=== PATIENT | female | born 1945 | race Caucasian/White ===

== ENCOUNTER 2023-09-03 13:13 | Day surgery (SDC) | payer MEDICARE, SELFPAY ==
--- NOTE | 2023-09-03 13:26 | PCM.HP.BLA ---
History and Physical Date of Admission: 09/03/23 Date of Service: 08/20/23 MR#: [id number] Acct: [id number] Name: PABLITO ALVES Rep #: [id number] : 1945 Provider: Dr. Luda Ayala MD Age/Sex: 77/F Location: [facility] Status: Signed Intake Vital Signs 08/20/2315:05 BP 130/66 H Blood Pressure Location Rt brachial Position Sitting Respiration 17 Pulse 84 Pulse Source Monitor Pulse Oximetry (%) 97 Oxygen Delivery Method room air Intake Visit Reasons: MED CHECK Chief Complaint: med check Is patient in pain?: No Allergies latex Allergy (Severe, Verified 08/20/23 14:37) Rashadhesive Allergy (Verified 08/20/23 14:37) Rashpregabalin [From Lyrica] Adverse Reaction (Verified 08/20/23 14:37) Nausea/Vom/Diarrhea Medications blood sugar diagnostic (True Metrix Glucose Test Strip) #10 ea 07/29/23 [History Confirmed 08/20/23] escitalopram oxalate 20 mg tablet mg PO 07/29/23 [History Confirmed 08/20/23] furosemide 20 mg tablet mg PO 07/29/23 [History Confirmed 08/20/23] glimepiride 2 mg tablet mg PO 07/29/23 [History Confirmed 08/20/23] lancets 33 gauge (TRUEplus Lancets) #100 ea 07/29/23 [History Confirmed 08/20/23] lisinopril 30 mg tablet mg PO 07/29/23 [History Confirmed 08/20/23] morphine 15 mg tablet,extended release mg PO 07/29/23 [History Confirmed 08/20/23] pantoprazole 40 mg tablet,delayed release 40 mg PO DAILY #30 tabs 07/29/23 [Rx Confirmed 08/20/23] PFSH Medical History Abdominal pain Bloating Gallbladder sludge Nausea Surgical History History of open heart surgery Family History Mother Hypertension High cholesterol Diabetes Social History Smoking Status: Never smoker alcohol intake: never substance use type: does not use HPI HPI HPI: 77-year-old female presents for follow-up for nausea. Patient has been taking the Protonix daily currently states she has been having continued nausea also had been taking Pepcid until she ran out. She has nausea throughout the entire day even before she eats. Patient's states she was able to eat an apple with peanut butter with no increase in her pain has bowel movements daily. Patient states she had an EGD about [address] Magdaleno at some point she may have had some erosions in her stomach or esophagus. ROS General General: Yes fatigue Endo Endocrine: Yes diabetes mellitus Cardio Cardiovascular: Yes high blood pressure Psych Psychiatric: Yes anxiety Gastro Gastrointestinal: Yes abdominal pain, Yes nausea or vomiting, Yes constipation, Yes hemorrhoids and Yes gallbladder problem Neuro Neurologic: Yes numbness and Yes tingling Exam Const General: cooperative, healthy appearing, comfortable and no acute distress Resp Effort & Inspection: normal respiratory effort Cardio Rate: regular rate GI Inspection: non-distended Palpation: soft and nontender Assessment and Plan Assessment and Plan (1) Nausea: Status: Acute (2) Bloating: Status: Acute (3) Gallbladder sludge: Status: Acute Plan Will continue to Protonix 40 mg p.o. daily and did offer Carafate however due to one of the side effects being constipation patient did not want to try as she has issues with constipation due to her taking the morphine for pain. Will plan for an EGD and if that does not show anything concerning would plan for cholecystectomy at that time. Patient is agreeable with plan. I have discussed the above with the patient. I have offered the patient esophagogastroduodenoscopy for evaluation. I have explained the risks/benefits of the procedure and described the procedure. I have discussed the risks with the patient, including but not limited to: infection, bleeding, perforation of the GI tract requiring emergency surgery, inability to complete the procedure, injury to any internal organs, complications of anesthesia, etc. - the patient understands and agrees to proceed. I have answered all the patient's questions to the patient's satisfaction and the patient has no further questions. Reviewed the anatomy with the patient and discussed the procedure: laparoscopic cholecystectomy with possible cholangiograms, possible open. Review risks including but not limited to bleeding, infection, hernia, bile leak, retained gallstones requiring another procedure ERCP- Endoscopic Retrograde Cholangiopancreatography, injury to another organ (bile ducts, common bile duct, small bowel, etc.) and conversion to an open procedure. All questions were answered. Luda Ayala M.D. Pager: [phone] [facility] [address] [place] [address] [address] [place] [id number] Office: [phone] Coding Level of Care Code Off vis,est,level 3 Diagnoses Nausea R11.0 Bloating R14.0 Gallbladder sludge K82.8 08/22/23 1153 <Electronically signed by Luda Ayala MD> Date Luda Ayala MD
[2023-09-03 13:54] VITALS: BP 190/74; PULSE 71; RESP 16; TEMP 37.2; O2SAT 99; BMI 27.5
[2023-09-03] MEDS: Lactated Ringers 1,000 ML 15 ML IV (14:02)
[2023-09-03 14:19] LABS: Bedside Glucose 150 mg/dL (74-106)
--- NOTE | 2023-09-03 14:30 | EGD_PTH ---
PATHOLOGY RESULTS PATIENT: PABLITO ALVES LOC: EN U#:[id number] AGE/SX: 78/F ROOM: RE09/03/[address]: Dr. Luda Ayala MD : 1945 BED: DIS: 09/03/2023 SPEC #: [id number] RECD: 09/04/23 07:06 STATUS: MELISSA JOSE LUIS #: [id number] AMKI: 09/03/23 14:[address]: Luda Ayala DEPT: SURGICAL PATHOLOGY RECD BY: Sridevi Coyle ENTERED: 09/04/23 07:07 SP TYPE: EGD BIOPSY Tissues: Gastric mucous membrane Esophagus, NOS Procedures: Special Stain Group II Surgery Specimen Level IV Alcian Blue/PAS (control) HEADER OPERATION: EGD with biopsy PRE-OP DIAGNOSIS: Nausea, bloating, gallbladder sludge TISSUE SUBMITTED: A - Antrum biopsy for H. pylori and path, B - Gastroesophageal junction biopsy MICROSCOPIC DIAGNOSIS A. Antrum, biopsy: Mild gastritis. See microscopic description and comment. B. Gastroesophageal junction, biopsy: A fragment of gastroesophageal mucosa with moderate chronic inflammation. Intestinal metaplasia (goblet cell metaplasia) not identified. See comment. SJ:lizbeth 09/05/2023 COMMENT A. The results of immunohistochemistry for Helicobacter pylori will be reported separately ([id number]). B. Alcian blue/PAS stain with matched control is used in the evaluation of the specimen. MICROSCOPIC DESCRIPTION Slides are reviewed. A. The specimen shows fragments of gastric mucosa with chronic inflammatory cell infiltrates in the lamina propria consisting of lymphocytes and plasma cells, consistent with mild chronic gastritis. GROSS DESCRIPTION A - Received in fixative is one container labeled with the patient's name and designated antrum biopsy. The specimen consists of two irregular fragments of light jones soft tissue that in aggregate measure 0.6 x 0.4 x 0.1 cm. The specimen is totally submitted in one cassette. B - Received in fixative is one container labeled with the patient's name and designated GE junction biopsy. The specimen consists of one irregular fragment of light jones soft tissue that measures 0.2 x 0.2 x 0.1 cm. The specimen is totally submitted in one cassette. / RENETTA:lizbeth 09/04/2023 TC:3 CPT: 93234 x2, 82741
--- NOTE | 2023-09-03 14:30 | IMM_PTH ---
PATHOLOGY RESULTS PATIENT: PABLITO ALVES LOC: EN U#:[id number] AGE/SX: 78/F ROOM: RE09/03/[address]: Dr. Luda Ayala MD : 1945 BED: DIS: 09/03/2023 SPEC #: [id number] RECD: 09/04/23 14:45 STATUS: MELISSA JOSE LUIS #: [id number] MAKI: 09/03/23 14:[address]: Luda Ayala DEPT: IMMUNOHISTOCHEMISTRY RECD BY: Jennifer Esteban ENTERED: 09/04/23 14:45 SP TYPE: IMMUNO Tissues: Stomach, NOS Procedures: H Pylori (initial) PHYSICIAN & INSTITUTION [place] [address] SPECIMEN INFORMATION: Tissue Source: A - Antrum Clinical Info: Nausea, bloating, gallbladder sludge Specimen Number: [id number] CPT code: 33294 METHODOLOGY: Deparaffinized sections of prefer/formalin-fixed tissue or PAP/DQ stained slides are incubated with monoclonal/polyclonal antibodies/oligonucleotide probes. Localization is made via biotin free immunoperoxidase method. Appropriate controls are performed and reacted as expected. Results on target cell population are indicated in the following table: RESULTS: ANTIBODY / CLONE RESULT Block A H Pylori (polyclonal) negative These tests were developed and their performance characteristics determined by [facility]. They may not have been cleared or approved by the U.S. Food and Drug Administration. The FDA has determined that such clearance or approval is not necessary. The above immunohistochemical/dualISH markers are ordered and reviewed by the Pathologist. INTERPRETATION: A. Antrum, biopsy: Negative for Helicobacter pylori organisms. SJ:lizbeth 09/05/2023
[2023-09-03 14:44] VITALS: BP 148/66; BP 190/74; PULSE 73; RESP 16; TEMP 36.4; O2SAT 100
--- NOTE | 2023-09-03 14:44 | OP.EGD_ITS ---
Patient Name: Rachel Stephens Procedure Date: 09/03/2023 2:22 PM Date of : 1945 Age: 78 Procedure: Upper GI endoscopy Indications: Abdominal bloating, Nausea Providers: Luda Ayala MD Medicines: Monitored Anesthesia Care Patient Profile: This is an 78 year old female. Complications: No immediate complications. Procedure: Pre-Anesthesia Assessment: - Prior to the procedure, a History and Physical was performed, and patient medications and allergies were reviewed. The patient's tolerance of previous anesthesia was also reviewed. The risks and benefits of the procedure and the sedation options and risks were discussed with the patient. All questions were answered, and informed consent was obtained. Prior Anticoagulants: The patient has taken no anticoagulant or antiplatelet agents. ASA Grade Assessment: Per anesthesia. After reviewing the risks and benefits, the patient was deemed in satisfactory condition to undergo the procedure. After obtaining informed consent, the endoscope was passed under direct vision. Throughout the procedure, the patient's blood pressure, pulse, and oxygen saturations were monitored continuously. The gastroscope was introduced through the mouth, and advanced to the second part of duodenum. The upper GI endoscopy was accomplished without difficulty. The patient tolerated the procedure well. Scope In: 2:32:43 PM Scope Out: 2:38:10 PM Total Procedure Duration Time 0 hours 5 minutes 27 seconds Findings: The Z-line was irregular and was found 40 cm from the incisors. Biopsies were taken with a cold forceps for histology. Mildly erythematous mucosa without bleeding was found in the gastric antrum. Biopsies were taken with a cold forceps for histology. Biopsies were taken with a cold forceps for Helicobacter pylori cultures. The examined duodenum was normal. The cardia and gastric fundus were normal on retroflexion. The exam was otherwise without abnormality. Impression: - Z-line irregular, 40 cm from the incisors. Biopsied. - Erythematous mucosa in the antrum. Biopsied. - Normal examined duodenum. - The examination was otherwise normal. Recommendation: - Await pathology results. - Discharge patient to home. - Resume previous diet. - Continue present medications. Procedure Code(s): --- Professional --- 88848, Esophagogastroduodenoscopy, flexible, transoral; with biopsy, single or multiple Diagnosis Code(s): --- Professional --- K22.89, Other specified disease of esophagus K31.89, Other diseases of stomach and duodenum R14.0, Abdominal distension (gaseous) R11.0, Nausea CPT copyright 2021 [employer]. All rights reserved. The codes documented in this report are preliminary and upon director of market intelligence review may be revised to meet current compliance requirements. MD Luda Moon MD 09/03/2023 2:43:36 PM This report has been signed electronically. Number of Addenda: 0 Note Initiated On: 09/03/2023 2:22 PM
[2023-09-03 14:50] VITALS: BP 161/72; BP 190/74; PULSE 66; RESP 16; O2SAT 100
[2023-09-03 14:55] VITALS: BP 175/79; BP 190/74; PULSE 67; RESP 16; O2SAT 100
[2023-09-03 14:59] VITALS: BP 183/77; BP 190/74; PULSE 63; RESP 16; TEMP 36.5; O2SAT 100
[2023-09-03 15:21] VITALS: BP 190/74
== END 2023-09-03 15:32 | disposition home or self-care (01) ==
LOC: EN 13:16 → AC 13:17
PROVIDERS: Referring Provider Surgery; Visit Provider Surgery
PROC: 0DJ08ZZ Inspection of Upper Intestinal Tract, Via Natural or Artificial Opening Endoscopic (ICD-10-PCS; CPT 43235; principal; 2023-09-03 14:25)
DX: K29.70 Gastritis, unspecified, without bleeding (principal); E11.9 Type 2 diabetes mellitus without complications; Z79.899 Other long term (current) drug therapy; I10 Essential (primary) hypertension; K20.90 Esophagitis, unspecified without bleeding; Z79.84 Long term (current) use of oral hypoglycemic drugs
CPT/HCPCS: 43239; 82962; 88305; 88313; 88342; J7120; J2405

== ENCOUNTER 2024-02-02 16:27 | Emergency (ER) | payer MEDICARE, SELFPAY ==
[2024-02-02] VITALS (28 sets, daily range): BP systolic 133–204; BP diastolic 57–109; PULSE 58–73; RESP 12–23; TEMP 36.4–36.8; O2SAT 88–100
--- NOTE | 2024-02-02 16:57 | EKG12_ITS ---
Test Reason : SOB Blood Pressure : / mmHG Vent. Rate : 072 BPM Atrial Rate : 072 BPM P-R Int : 150 ms QRS Dur : 100 ms QT Int : 376 ms P-R-T Axes : 095 -54 071 degrees QTc Int : 411 ms Normal sinus rhythm Pulmonary disease pattern Incomplete right bundle branch block Left anterior fascicular block Left ventricular hypertrophy ( R in aVL , Darryl product , Romhilt-Kerns ) Abnormal ECG Confirmed by AMARIS AGRAWAL, ZOEY ([id number]), communications editor KAMILLA FOSTER ([id number]) on 02/03/2024 2:12:28 PM Referred By: BROCK Confirmed By:ZOEY GLEZ MD
--- NOTE | 2024-02-02 16:58 | EX.ED.DYSGE1 ---
HPI History of Present Illness Chief Complaint: Shortness of Breath Informant: patient Onset/Context/Timing Onset: Weeks Context: Gradual Onset Narrative Narrative: Patient presents with several week history of shortness of breath. She has been dealing with constipation for several years after being placed on morphine by pain management. She saw Dr. Ayala in the office 3 weeks ago secondary to abdominal pain and constipation. She was told to take magnesium citrate and be sure to use MiraLAX or Dulcolax when she is constipated. She states she did take magnesium citrate and only had a small bowel movement. She admits that she does not eat right and take care of herself like she should. She saw her PCP today who feels that her increasing shortness of breath is secondary to constipation and pressure on her diaphragm. She does not have cough or congestion. She does not have history of asthma or COPD. [facility] Medical History Loss of hearing Wears glasses Wears partial dentures Post-menopausal History of pressure injury of skin Fractured Diabetes Ambulates with cane Arthritis Bladder disease Easy bruising Back pain Dietary restriction Gastric reflux Non-smoker Neuropathy History of pain when walking History of edema History of stress test History of echocardiogram Cardiology follow-up encounter Hypertension Gallbladder sludge Bloating Nausea Abdominal pain Home Medications ?Medication ?Instructions ?Recorded ?Last Taken ?Type blood sugar diagnostic (True #10 ea 07/29/23 Unknown History Metrix Glucose Test Strip) furosemide 20 mg tablet 20 mg PO PRN PRN edema 07/29/23 Unknown History glimepiride 2 mg tablet 2 mg PO DAILY 07/29/23 Unknown History lancets 33 gauge (TRUEplus Lancets) #100 ea 07/29/23 Unknown History lisinopril 30 mg tablet 30 mg PO DAILY 07/29/23 Unknown History morphine 15 mg tablet,extended 15 mg PO .Q12 07/29/23 Unknown History release pantoprazole 40 mg tablet,delayed 40 mg PO DAILY #30 tabs 09/25/23 Unknown Rx release methylcellulose (laxative) 2 g PO DAILY PRN constipation 01/13/24 Unknown History (Citrucel Sugar Free oral powder) polyethylene glycol 3350 17 4 g PO DAILY PRN constipation 01/13/24 Unknown History gram/dose oral powder (Miralax) escitalopram oxalate 10 mg tablet 10 mg PO DAILY 02/02/24 Unknown History eszopiclone 2 mg tablet 2 mg PO QHS 02/02/24 Unknown History metoprolol tartrate 25 mg tablet 25 mg PO BID 02/02/24 Unknown History omega-3 acid ethyl esters 1 gram 2 cap PO DAILY 02/02/24 Unknown History capsule Allergy/AdvReac Type Severity Reaction Status Date / Time latex Allergy Severe Rash Verified 02/02/24 16:30 adhesive Allergy Rash Verified 02/02/24 16:30 pregabalin (From Lyrica) AdvReac Nausea/Vom/ Verified 02/02/24 16:30 Diarrhea Family History Mother Hypertension High cholesterol Diabetes Surgical History History of esophagogastroduodenoscopy (EGD) History of back surgery Hx of total knee replacement Hx of foot surgery Hx of tubal ligation History of open heart surgery Social History Smoking Status: Never smoker alcohol intake: never substance use type: does not use ROS ROS ED Constitutional Constitutional ED: Denies chills or fever(s) Eyes Eyes: Denies discharge from eye(s) ENT ENT ED: Denies discharge from eye(s), rhinorrhea or sore throat Cardiovascular Cardiovascular: Denies chest pain or palpitations Respiratory/Chest Respiratory/Chest: Reports dyspnea; Denies cough Gastrointestinal Gastrointestinal: Reports abdominal pain and constipation; Denies diarrhea, nausea or vomiting Genitourinary Genitourinary ED: Denies dysuria Musculoskeletal Musculoskeletal: Denies back pain or extremity pain Integumentary Denies Abrasions or rash Neurologic Neurologic: Denies headache(s) or weakness Psychiatric Psychiatric: Denies anxiety or depression Allergic/Immunologic Allergic/Immunologic ED: Denies lip swelling or urticaria EXAM Physical Exam Const Vital Signs: 02/02/24 16:27 02/02/24 16:28 02/02/24 17:22 Temperature 97.5 F L Temperature Source Temporal Pulse Rate 65 70 Respiratory Rate 18 17 Respiratory Effort Short of Breath Respiratory Depth Normal Respiratory Pattern Normal Blood Pressure 142/62 H Blood Pressure Mean 88 Pulse Ox 95 Oxygen Delivery Method Room Air Room Air Oxygen Flow Rate (L/min) 02/02/24 17:27 02/02/24 17:30 02/02/24 17:30 Temperature 98 F Temperature Source Oral Pulse Rate 63 65 65 Respiratory Rate 16 18 23 H Respiratory Effort Respiratory Depth Respiratory Pattern Blood Pressure 152/94 H 154/59 H 154/59 H Blood Pressure Mean 113 90 85 Pulse Ox 92 95 Oxygen Delivery Method Room Air Room Air Oxygen Flow Rate (L/min) 02/02/24 17:45 02/02/24 18:00 02/02/24 18:06 Temperature Temperature Source Pulse Rate 64 60 63 Respiratory Rate 17 18 19 H Respiratory Effort Respiratory Depth Respiratory Pattern Blood Pressure 164/57 H 164/57 H Blood Pressure Mean 88 92 Pulse Ox 95 93 Oxygen Delivery Method Room Air Room Air Oxygen Flow Rate (L/min) 02/02/24 18:15 02/02/24 18:29 02/02/24 18:30 Temperature Temperature Source Pulse Rate 60 59 L Respiratory Rate 16 20 H 16 Respiratory Effort Respiratory Depth Respiratory Pattern Blood Pressure 171/65 H Blood Pressure Mean 92 Pulse Ox 91 88 90 Oxygen Delivery Method Nasal Cannula Nasal Cannula Oxygen Flow Rate (L/min) 2 2 02/02/24 18:45 02/02/24 19:00 02/02/24 19:15 Temperature Temperature Source Pulse Rate 58 L 67 67 Respiratory Rate 14 17 16 Respiratory Effort Respiratory Depth Respiratory Pattern Blood Pressure Blood Pressure Mean Pulse Ox 90 95 100 Oxygen Delivery Method Room Air Oxygen Flow Rate (L/min) 02/02/24 19:30 02/02/24 19:45 02/02/24 19:57 Temperature Temperature Source Pulse Rate 69 70 71 Respiratory Rate 16 15 18 Respiratory Effort Respiratory Depth Respiratory Pattern Blood Pressure Blood Pressure Mean Pulse Ox 96 100 96 Oxygen Delivery Method Oxygen Flow Rate (L/min) 02/02/24 19:58 02/02/24 20:00 Temperature Temperature Source Pulse Rate 73 71 Respiratory Rate 20 H 19 H Respiratory Effort Respiratory Depth Respiratory Pattern Blood Pressure 133/109 H Blood Pressure Mean 117 Pulse Ox 97 100 Oxygen Delivery Method Nasal Cannula Oxygen Flow Rate (L/min) 2 Positive well nourished and well developed General Appearance ED: well developed HEENT Reports moist mucous membranes Eyes EOMs intact bilaterally Chest Wall inspection of chest normal and palpation of chest normal Resp normal respiratory effort and clear to auscultation bilaterally Cardio regular rate and regular rhythm GI GI Narrative: Abdomen soft and slightly distended. Active bowel sounds are noted. No focal tenderness. Extremity normal to inspection Neuro oriented x3 and no sensory deficits noted Motor Exam: strength 5/5 throughout Psych mental status grossly normal Skin no rashes or lesions noted MDM MDM MDM Narrative Medical decision making narrative: Patient placed on monitor technician. IV line initiated. EKG obtained to evaluate for cardiac arrhythmia/ischemia. Labwork obtained to evaluate for leukocytosis, anemia, and electrolyte derangement. Acute abdominal series will be obtained to evaluate bowel gas pattern as well as any acute lung pathology. I did review the most recent surgery note. History & Record Review Discussion w/independent historian: Patient Lab Data Attestation: I reviewed the patient's lab results. Labs: Laboratory Results - last 24 hr 02/02/24 16:55 WBC 11.8 H RBC 3.75 L Hgb 10.7 L Hct 35.4 L MCV 94.4 MCH 28.5 MCHC 30.2 L RDW Std Deviation 42.9 RDW Coeff of Marleen 12.4 Plt Count 248 MPV 9.9 Immature Gran % (Auto) 0.500 Neut % (Auto) 76.6 H Lymph % (Auto) 12.3 L [place] % (Auto) 9.7 Eos % (Auto) 0.0 Baso % (Auto) 0.9 Absolute Neuts (auto) 9.0 H Absolute Lymphs (auto) 1.45 Nucleated RBC % 0 Sodium 138 Potassium 4.2 Chloride 104 Carbon Dioxide 27.0 Anion Gap 7 BUN 21 H Creatinine 1.17 H Estim Creat Clear Calc 33.44 Est GFR (MDRD) Af Amer 57 L Est GFR (MDRD) Non-Af 47 L BUN/Creatinine Ratio 17.9 Glucose 172 H Calcium 9.1 Total Bilirubin 0.90 Direct Bilirubin 0.28 AST 27 ALT 38 Alkaline Phosphatase 142 H Troponin I High Sens 16 Total Protein 7.2 Albumin 3.6 Globulin 3.6 Radiography Diagnostic Testing: Clinical Impression(s) from Imaging Studies Acute Abdomen Series 02/02/24 17:05 IMPRESSION: Chronic obstructive pulmonary disease. Cardiomegaly with sternotomy change and prosthetic aortic valve. Small pleural effusions without florid interstitial edema. Large colonic stool and gas burden as can be seen with constipation. No specific evidence of bowel obstruction. Electronically Signed: Nick Haney MD at 17:35 EDT , Chest CTA 02/02/24 20:06 IMPRESSION: No pulmonary embolism. 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 Mild peribronchial thickening which can be seen with edema or bronchitis/bronchiolitis. 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 Mild reactive mediastinal and hilar adenopathy. Electronically Signed: Nick Haney MD at 20:41 EDT , Treatment and Re-Evaluation :: CBC was white count of 11.8 with 76% neutrophils. Hemoglobin is 10.7. Chemistry studies reveal a BUN of 21 and a creatinine 1.17. Glucose is 172. LFTs significant only for an alk phos of 142. Troponin is normal at 16. Acute abdominal series is obtained. Chronic lung changes are noted with no infiltrate. Large stool burden noted with no evidence of bowel obstruction per my interpretation. Radiology interpretation reviewed and agrees. Patient was ordered a soapsuds enema. I was advised by nursing staff that the patient did drop her oxygen saturations into the mid to upper 80s and required 2 L nasal cannula. At that time I did choose to obtain a CTA of her chest. There is no evidence of pulmonary embolism. 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 There are small layering effusions noted. Nursing staff notes patient had large results with her enema. I did discuss her current need for oxygen, however patient is very adamant that she wants to go home. She states that she does have a pulse ox meter that she will monitor her oxygen levels. I will have her sign out AGAINST MEDICAL ADVICE. She states that when she had similar ankle swelling in the past her principal quality engineer told her to take 20 mg of Lasix daily instead of the 10 mg 3 times a week that she currently takes it. She will increase her Lasix again at home to help with fluid resolution. She does have magnesium citrate at home that she will take tomorrow and then use Dulcolax laxatives to help with her constipation. She will also speak with her pain management doctor regarding other treatment options. Discharge Plan Triage Chief Complaint: Shortness of Breath ED Provider: Prema Palacios Dx/Rx/DC Orders Clinical Impression: CHF (congestive heart failure), Constipation Instructions: ED Heart Failure, Congestive (CHF), ED Constipation (Adult) Prescriptions: No Action morphine 15 mg tablet extended release 15 mg PO .Q12 glimepiride 2 mg tablet 2 mg PO DAILY furosemide 20 mg tablet 20 mg PO PRN PRN (Reason: edema) Patient Comments: TAKE 1/2 TABLET BY MOUTH 3 TIMES A DAY NEEDED. lisinopril 30 mg tablet 30 mg PO DAILY Patient Comments: TAKE 1 TABLET BY MOUTH ONCE DAILY. (DME) True Metrix Glucose Test Strip Strip See Rx Instructions .ROUTE .MEDSUPPLY Qty: 10 Patient Comments: USE DIRECTED ONCE DAILY Rx Instructions: As directed (DME) lancets [TRUEplus Lancets] 33 gauge misc See Rx Instructions .ROUTE .MEDSUPPLY Qty: 100 Patient Comments: USE DIRECTED ONCE DAILY Rx Instructions: As directed polyethylene glycol 3350 [Miralax] 17 gram/dose powder 4 g PO DAILY PRN (Reason: constipation) Citrucel Sugar Free Powder 2 g PO DAILY PRN (Reason: constipation) escitalopram oxalate 10 mg tablet 10 mg PO DAILY metoprolol tartrate 25 mg tablet 25 mg PO BID omega-3 acid ethyl esters 1 gram capsule 2 cap PO DAILY eszopiclone 2 mg tablet 2 mg PO QHS pantoprazole 40 mg tablet,delayed release (DR/EC) 40 mg PO DAILY Qty: 30 5RF Primary Care Provider: DENILSON HERNANDEZ Referrals: Jasper Rose MD [Med Staff - Active Staff] - 1-2 Weeks NOT,DEFINED [Non-Staff] - Print Language: Sinhala Disposition Disposition: Home, Self Care
--- NOTE | 2024-02-02 17:05 | RAD_ITS ---
INDICATION: sob, constipation EXAMINATION/TECHNIQUE: X-RAY - XR Abdomen Series W/ Chest 1 View COMPARISON: FINDINGS: LINES/DEVICES: None. --Chest: LUNGS: Lungs symmetrically hyperexpanded. Small bowel pleural effusions. No consolidation. No pneumothorax. MEDIASTINUM AND CARDIOVASCULAR STRUCTURES: Cardiac silhouette not enlarged. Multiple mediastinal surgical clips. Aortic prosthetic valve noted. Epigastric percutaneous pacing wires present. BONES AND SOFT TISSUES: Sternotomy wires are midline and intact. No acute findings. --Abdomen: BOWEL GAS PATTERN: Large colonic stool and gas burden. Scattered small bowel gas. Stomach moderately filled with gas. FREE AIR: None visualized. ORGANOMEGALY: Not seen. CALCIFICATIONS: No concerning calcifications. BONES AND SOFT TISSUES: No acute findings. RAD/Acute Abdomen Inc Chest IMPRESSION: Chronic obstructive pulmonary disease. Cardiomegaly with sternotomy change and prosthetic aortic valve. Small pleural effusions without florid interstitial edema. Large colonic stool and gas burden as can be seen with constipation. No specific evidence of bowel obstruction. Electronically Signed: Nick Haney MD at 17:35 EDT Reading Location ID and State: [facility] / [place] Tel , Service support ,
[2024-02-02 17:08] LABS: Absolute Lymphocyte Count 1.45 X10^3/uL (0.83-4.51); Basophil# 0.11 X10^3/uL; Basophil% 0.9 % (0-1); Hematocrit 35.4 % (37-47); Hemoglobin 10.7 g/dL (12.0-15.0); Lymphocyte # 1.45 X10^3/ul (0.83-4.51); Lymphocyte % 12.3 % (19-41); Mean Corp Hgb Conc 30.2 g/dL (32-36); Mean Corpuscular Hgb 28.5 pg (27.0-32.0); Mean Corpuscular Volume 94.4 fL (81-99); Mean Platelet Vol. 9.9 fl (6.2-12.0); Monocyte# 1.14 X10^3/uL; Monocyte% 9.7 % (0-10); NRBC Flagged by Analyzer 0 % (0-5); Neutrophil # 9.03 X10^3/uL (2.7-7.7); Neutrophil % 76.6 % (47-70); Platelet Count 248 K/mm3 (150-450); RBC Distribution Width CV 12.4 % (11.6-14.6); RBC Distribution Width SD 42.9 fl (35.1-43.9); Red Blood Count 3.75 M/mm3 (4.2-5.4); White Blood Count 11.8 K/mm3 (4.4-11.0)
[2024-02-02 17:34] LABS: AST(SGOT) 27 U/L (15-37); Alanine Aminotransfer ALT/SGPT 38 U/L (13-56); Albumin, Serum 3.6 g/dL (3.2-5.0); Alkaline Phosphatase 142 U/L (45-117); Anion Gap 7 (5-15); BUN 21 mg/dL (7-18); BUN/Creat Ratio 17.9 RATIO (10-20); Bilirubin, Direct 0.28 mg/dL (0.00-0.30); Calcium,Total 9.1 mg/dL (8.5-10.1); Chloride 104 mmol/L (98-107); Creatinine, Serum 1.17 mg/dL (0.55-1.02); EST Glomerular Filtration Rate 47 mL/min (>60); Est Glom Filt Rate - Afr Amer 57 mL/min (>60); Estimated Creatinine Clearance 33.44 ml/min; Globulin 3.6 g/dL (2.2-4.2); Glucose 172 mg/dL (74-106); Potassium 4.2 mmol/L (3.5-5.1); Protein, Total 7.2 g/dL (6.4-8.2); Sodium Level 138 mmol/L (136-145); Troponin-I HS 16 pg/mL (3.0-54.0)
--- NOTE | 2024-02-02 20:06 | CT_ITS ---
STUDY: CTA CHEST REASON FOR EXAM: Female, 78 years old. hypoxia RADIATION DOSAGE (If Supplied By Facility): CTDIvol = ( 11.59 ) mGy, DLP = ( 377.68 ) mGycm TECHNIQUE: The examination was performed with the intravenous administration of IV 75mL Isovue-370. Post-processing of the angiographic images was performed, with multiplanar reformation and 3D reconstruction. Individualized dose optimization techniques were used for this CT. COMPARISON: February 02, 2024 chest radiograph. FINDINGS: Mildly heterogeneous thyroid, no specific imaging follow-up required. Normal enhancement of the bilateral pulmonary arteries. There is no demonstrated pulmonary embolism. No main pulmonary arterial enlargement. Prosthetic aortic valve noted. Mild aortic atherosclerosis. 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 No cardiomegaly or pericardial effusion. Mild scattered calcified coronary atherosclerosis. Prior sternotomy with percutaneous pacing wires Precarinal lymph node 1.8 cm in short axis. Subcarinal lymph node 1.7 cm short axis. Subcentimeter bilateral hilar lymph nodes are present. Unremarkable esophagus. Mild bilateral peribronchial thickening. Mild bilateral intralobular septal thickening. Small layering pleural effusions with mild compressive atelectasis. No pneumothorax. 5 mm posterior right upper lobe nodule axial image 169. Normal osseous structures. Normal visualized upper abdomen. CT/CTA Chest W/WO Contrast IMPRESSION: No pulmonary embolism. 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 Mild peribronchial thickening which can be seen with edema or bronchitis/bronchiolitis. 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 Mild reactive mediastinal and hilar adenopathy. Electronically Signed: Nick Haney MD at 20:41 EDT ,
== END 2024-02-02 21:41 | disposition home or self-care (01) ==
PROVIDERS: Emergency Provider Emergency Medicine; Visit Provider Emergency Medicine
DX: I11.0 Hypertensive heart disease with heart failure (principal); I50.9 Heart failure, unspecified; E11.9 Type 2 diabetes mellitus without complications; K59.00 Constipation, unspecified; Z79.899 Other long term (current) drug therapy; Z95.2 Presence of prosthetic heart valve; Z95.1 Presence of aortocoronary bypass graft
CPT/HCPCS: 71275; 74022; 80048; 80076; 84484; 85025; 93005; 99285; Q9967; A4216

== ENCOUNTER 2024-02-06 15:08 | Inpatient (IN) | payer MEDICARE, SELFPAY ==
[2024-02-06] VITALS (13 sets, daily range): BP systolic 160–210; BP diastolic 59–84; PULSE 14–86; RESP 14–83; TEMP 36.1–36.8; O2SAT 93–100; BMI 29.6; BMI 28.8
--- NOTE | 2024-02-06 15:48 | EKG12_ITS ---
Test Reason : SOB Blood Pressure : / mmHG Vent. Rate : 062 BPM Atrial Rate : 062 BPM P-R Int : 168 ms QRS Dur : 106 ms QT Int : 456 ms P-R-T Axes : 067 -57 035 degrees QTc Int : 462 ms Normal sinus rhythm Left anterior fascicular block Left ventricular hypertrophy ( R in aVL , [place] product , Romh[employer]-Kerns ) Abnormal ECG Confirmed by AMARIS AGRAWAL, ZOEY ([id number]), market editor KAMILLA FOSTER ([id number]) on 02/09/2024 8:50:07 AM Referred By: Confirmed By:ZOEY GLEZ MD
--- NOTE | 2024-02-06 15:51 | EDS_ITS ---
HPI History of Present Illness Chief Complaint: Shortness of Breath Informant: patient Narrative Narrative: Worsening and persistent dyspnea since being seen 4 days ago in the emergency department. She has history of CHF. She denies cough. She states she swallows in the stomach and the legs. She reports orthopnea. She denies cough or fevers. Denies chest pain. She was initially seen by her PCP on Friday and was told to go to the ED. She had a workup. She is typically takes Lasix 10 mg 3 times a week. Since being discharged she has been on 20 mg Lasix daily. States swelling not improving symptoms not improved. She has been checking her amatory pulse ox at home states fluctuates from 84% to 95%. She returns for reevaluation. After evaluation initiation of workup, I reviewed her records from the ED 4 days ago. She had a CTA of the chest neck for PE she had later bilateral pleural effusion. Her pulse ox did drop on the emergency department however she declined hospitalization and signed out AGAINST MEDICAL ADVICE. [facility] Medical History Loss of hearing Wears glasses Wears partial dentures Post-menopausal History of pressure injury of skin Fractured Diabetes Ambulates with cane Arthritis Bladder disease Easy bruising Back pain Dietary restriction Gastric reflux Non-smoker Neuropathy History of pain when walking History of edema History of stress test History of echocardiogram Cardiology follow-up encounter Hypertension Gallbladder sludge Bloating Nausea Abdominal pain Home Medications ?Medication ?Instructions ?Recorded ?Last Taken ?Type blood sugar diagnostic (True #10 ea 07/29/23 Unknown History Metrix Glucose Test Strip) furosemide 20 mg tablet 20 mg PO DAILY PRN edema 07/29/23 02/06/24 History glimepiride 2 mg tablet 2 mg PO DAILY 07/29/23 02/06/24 History lancets 33 gauge (TRUEplus Lancets) #100 ea 07/29/23 Unknown History lisinopril 30 mg tablet 30 mg PO DAILY 07/29/23 02/06/24 History morphine 15 mg tablet,extended 15 mg PO Q12H 07/29/23 02/05/24 History release methylcellulose (laxative) 2 g PO DAILY PRN constipation 01/13/24 Unknown History (Citrucel Sugar Free oral powder) polyethylene glycol 3350 17 4 g PO DAILY PRN constipation 01/13/24 Unknown History gram/dose oral powder (Miralax) escitalopram oxalate 10 mg tablet 10 mg PO QPM 02/02/24 02/05/24 History eszopiclone 2 mg tablet 2 mg PO QHS PRN sleep 02/02/24 Unknown History metoprolol tartrate 25 mg tablet 25 mg PO BID 02/02/24 02/05/24 History omega-3 acid ethyl esters 1 gram 2 cap PO DAILY 02/02/24 02/06/24 History capsule docusate sodium 100 mg capsule 100 mg PO DAILY PRN constipation 02/06/24 Unknown History Allergy/AdvReac Type Severity Reaction Status Date / Time latex Allergy Severe Rash Verified 02/06/24 15:12 adhesive Allergy Rash Verified 02/06/24 15:12 pregabalin (From Lyrica) AdvReac Nausea/Vom/ Verified 02/06/24 15:12 Diarrhea Family History Mother Hypertension High cholesterol Diabetes Surgical History History of esophagogastroduodenoscopy (EGD) History of back surgery Hx of total knee replacement Hx of foot surgery Hx of tubal ligation History of open heart surgery Social History Smoking Status: Never smoker alcohol intake: never substance use type: does not use ROS ROS ED Constitutional Constitutional ED: Denies chills, fever(s) or sweats Eyes Eyes: Denies change in vision ENT ENT ED: Denies dysphagia or sore throat Cardiovascular Cardiovascular: Reports leg edema and orthopnea; Denies chest pain, palpitations or racing heartbeat Respiratory/Chest Respiratory/Chest: Reports dyspnea and orthopnea; Denies cough or dyspnea on exertion Gastrointestinal Gastrointestinal: Denies abdominal pain, diarrhea, nausea or vomiting Genitourinary Genitourinary ED: Denies dysuria, hematuria or urinary frequency Musculoskeletal Musculoskeletal: Denies back pain, extremity pain or neck pain Integumentary Denies rash or wounds Neurologic Neurologic: Denies headache(s), paresthesias or weakness EXAM Physical Exam Const Vital Signs: 02/06/24 15:08 02/06/24 15:08 02/06/24 17:12 Temperature 97.3 F L Temperature Source Temporal Pulse Rate 73 14 L Respiratory Rate 14 83 H Respiratory Effort Short of Breath Respiratory Depth Shallow Respiratory Pattern Tachypnea Blood Pressure 210/81 H 202/71 H Blood Pressure Mean 124 114 Pulse Ox 98 99 Oxygen Delivery Method Room Air Room Air Oxygen Flow Rate (L/min) 02/06/24 17:14 02/06/24 17:17 02/06/24 17:34 Temperature Temperature Source Pulse Rate 60 Respiratory Rate 19 H Respiratory Effort Respiratory Depth Respiratory Pattern Blood Pressure 198/84 H 160/77 H Blood Pressure Mean 122 104 Pulse Ox 100 98 Oxygen Delivery Method Nasal Cannula Room Air Oxygen Flow Rate (L/min) 2 Positive well nourished and well developed General Appearance ED: well developed and NAD HEENT Reports moist mucous membranes normocephalic and atraumatic Eyes EOMs intact bilaterally and conjunctivae normal General Eye ED: Yes normal appearance of both eyes Neck no lymphadenopathy and supple General: Negative for tenderness Chest Wall Chest: Negative for tenderness Resp normal respiratory effort and normal air movement Effort and Inspection: symmetric chest movement; Negative for respiratory distre ss Cardio regular rate, regular rhythm and no murmurs Peripheral Pulses: pulses 2+ throughout GI non-tender GI Narrative: abdominal distention, nontender Palpation: Negative for guarding or rebound tenderness present Back/Spine no CVA tenderness and no thoracic nor lumbar tenderness Extremity normal to inspection Extremity Narrative: 1+ lower extremity edema bilaterally pitting. General Extremety ED: Yes edema; Negative for tenderness General Extremity: edema Neuro oriented x3 and no sensory deficits noted Sensorium / Orientation: awake and alert Skin no rashes or lesions noted and no wounds MDM MDM MDM Narrative Medical decision making narrative: Interventions / MDM: Differential diagnosis: CHF exacerbation, anasarca, hypoxia Diagnosis considered but do not suspect: Pulm embolism however CTA chest -4 days ago. My EKG interpretation: N/A Imaging independently reviewed and interpreted by myself: 2 view chest x-ray: Vascular congestion mild pleural effusion also read by radiology. External documents reviewed: N/A Test considered but not ordered:N/A ED course: Blood pressure 210 systolic on arrival, however during my evaluation room systolic 164. She is on lisinopril 30 mg daily. Current pulse ox at rest 98%. Will check x-ray and recheck labs. Lab stable creatinine slightly elevated up to 1.26 from 1.1. BNP 288 troponin negative. Chest x-ray with mild pleural effusion. Patient was ambulated per nursing dropped down to 82%. Improving with rest placed on 2 L. She started on 40 mg IV Lasix. I discussed with hospitalist Dr. Davila for admission to PCU. Re-evaluation: stable Disposition discussed with patient/family/significant other: Patient Case discussed with consulting clinician: Hospitalist This note was generated with [employer] dictation software. It may contain incorrect words, spelling, and punctuation that were not noted in checking the note before signing. Lab Data Attestation: I reviewed the patient's lab results. Labs: Laboratory Results - last 24 hr 02/06/24 16:00 WBC 8.9 RBC 3.67 L Hgb 10.5 L Hct 34.1 L MCV 92.9 MCH 28.6 MCHC 30.8 L RDW Std Deviation 42.5 RDW Coeff of Marleen 12.5 Plt Count 234 MPV 10.0 Immature Gran % (Auto) 0.400 Neut % (Auto) 74.5 H Lymph % (Auto) 13.0 L [place] % (Auto) 10.9 H Eos % (Auto) 0.0 Baso % (Auto) 1.2 H Absolute Neuts (auto) 6.6 Absolute Lymphs (auto) 1.16 Nucleated RBC % 0 Sodium 137 Potassium 3.7 Chloride 100 Carbon Dioxide 29.0 Anion Gap 8 BUN 25 H Creatinine 1.26 H Estim Creat Clear Calc 30.82 Est GFR (MDRD) Af Amer 53 L Est GFR (MDRD) Non-Af 43 L BUN/Creatinine Ratio 19.8 Glucose 165 H Calcium 9.1 Troponin I High Sens 13 B-Natriuretic Peptide 288.3 H Radiography Diagnostic Testing: Clinical Impression(s) from Imaging Studies Chest X-Ray 02/06/24 16:10 IMPRESSION: Cardiomegaly with minimal central pulmonary venous congestion and trace bilateral pleural effusions. Electronically Signed: Delano Mann MD at 17:31 EDT , Discharge Plan Dx/Rx/DC Orders Clinical Impression: CHF (congestive heart failure), Hypoxia, Anasarca, Failure of outpatient treatment Disposition Disposition: Acute Care Hospital [facility] Discharge Date/Time: 02/06/24 18:11
--- NOTE | 2024-02-06 16:10 | RAD_ITS ---
INDICATION: sob EXAMINATION/TECHNIQUE: X-RAY - XR Chest 2 Views COMPARISON: 02/02/2024. FINDINGS: Minimal central pulmonary venous congestion. Sternal cerclage wires and vascular clips are present from a prior sternotomy and coronary artery bypass graft procedure (CABG). The heart is enlarged. Tortuous and calcified thoracic aorta. Trace bilateral pleural effusions. No pneumothorax. Degenerative changes of the thoracic spine. RAD/Chest PA and Lateral IMPRESSION: Cardiomegaly with minimal central pulmonary venous congestion and trace bilateral pleural effusions. Electronically Signed: Delano Mann MD at 17:31 EDT ,
[2024-02-06 16:21] LABS: Absolute Lymphocyte Count 1.16 X10^3/uL (0.83-4.51); Absolute Neutrophil Count 6.6 X10^3/uL (2.0-7.7); Basophil# 0.11 X10^3/uL; Basophil% 1.2 % (0-1); Hematocrit 34.1 % (37-47); Hemoglobin 10.5 g/dL (12.0-15.0); Lymphocyte # 1.16 X10^3/ul (0.83-4.51); Mean Corp Hgb Conc 30.8 g/dL (32-36); Mean Corpuscular Hgb 28.6 pg (27.0-32.0); Mean Corpuscular Volume 92.9 fL (81-99); Monocyte# 0.97 X10^3/uL; Monocyte% 10.9 % (0-10); NRBC Flagged by Analyzer 0 % (0-5); Neutrophil # 6.62 X10^3/uL (2.7-7.7); Neutrophil % 74.5 % (47-70); Platelet Count 234 K/mm3 (150-450); RBC Distribution Width CV 12.5 % (11.6-14.6); RBC Distribution Width SD 42.5 fl (35.1-43.9); Red Blood Count 3.67 M/mm3 (4.2-5.4); White Blood Count 8.9 K/mm3 (4.4-11.0)
[2024-02-06 16:45] LABS: Anion Gap 8 (5-15); BUN 25 mg/dL (7-18); BUN/Creat Ratio 19.8 RATIO (10-20); Calcium,Total 9.1 mg/dL (8.5-10.1); Chloride 100 mmol/L (98-107); Creatinine, Serum 1.26 mg/dL (0.55-1.02); EST Glomerular Filtration Rate 43 mL/min (>60); Est Glom Filt Rate - Afr Amer 53 mL/min (>60); Estimated Creatinine Clearance 30.82 ml/min; Glucose 165 mg/dL (74-106); Potassium 3.7 mmol/L (3.5-5.1); Sodium Level 137 mmol/L (136-145); Troponin-I HS 13 pg/mL (3.0-54.0)
[2024-02-06 17:18] LABS: BNP,B-Type NATRIURETIC PEPTIDE 288.3 pg/mL (0-100)
[2024-02-06] MEDS: Furosemide 40 MG/4 ML Vial IV (17:40)
--- NOTE | 2024-02-06 18:05 | HP.PCM.HOS_ITS ---
HPI - General General Date of Admission: 02/06/24 Date of Service: 02/06/24 Chief Complaint: shortness of breath HPI Narrative PABLITO ALVES, is a 78 F with a PMH as outlined who presents via the ED on 02/06/2024 with a complaint of shortness of breath which have been going on for at least 5 days. She said her shortness of breath had gradually worsened. She denied any cough or chest pain, palpitations or dizziness, orthopnea or PND. Shortness of breath worsened with exertion. She has not has had shortness of breath before. She states she also notices some swelling of her lower extremities, especially around her ankles. Review of systems otherwise negative. She was seen in the ED last Friday and plan was for her to be admitted as chest imaging done showed evidence of bilateral pleural effusion concerning for heart failure. Patient however says she did not feel the shortness of breath was that bad at that time and so she opted to go home and signed out AMA. She came back because her symptoms were worsening. Vitals in the ED showed blood pressure of 160/77, pulse rate of 60, respirate rate of 19 and oxygen saturation of 98% on 2L of oxygen. CBC showed WBC of 8.9 with hemoglobin of 10.5 and platelets of 234. Chemistry shows sodium of 137 with potassium of 3.7 and bicarb of 29. Creatinine is 1.26. Initial troponin was negative and BNP was 288.3. Chest x-ray showed cardiomegaly with minimal central venous pulmonary congestion and trace bilateral pleural effusions. She has been admitted to manage for hypoxia due to acute heart failure of unknown EF. [facility] Medical History Loss of hearing Wears glasses Wears partial dentures Post-menopausal History of pressure injury of skin Fractured Diabetes Ambulates with cane Arthritis Bladder disease Easy bruising Back pain Dietary restriction Gastric reflux Non-smoker Neuropathy History of pain when walking History of edema History of stress test History of echocardiogram Cardiology follow-up encounter Hypertension Gallbladder sludge Bloating Nausea Abdominal pain Home Medications ?Medication ?Instructions ?Recorded ?Last Taken ?Type blood sugar diagnostic (True #10 ea 07/29/23 Unknown History Metrix Glucose Test Strip) furosemide 20 mg tablet 20 mg PO DAILY PRN edema 07/29/23 02/06/24 History glimepiride 2 mg tablet 2 mg PO DAILY 07/29/23 02/06/24 History lancets 33 gauge (TRUEplus Lancets) #100 ea 07/29/23 Unknown History lisinopril 30 mg tablet 30 mg PO DAILY 07/29/23 02/06/24 History morphine 15 mg tablet,extended 15 mg PO Q12H 07/29/23 02/05/24 History release methylcellulose (laxative) 2 g PO DAILY PRN constipation 01/13/24 Unknown History (Citrucel Sugar Free oral powder) polyethylene glycol 3350 17 4 g PO DAILY PRN constipation 01/13/24 Unknown History gram/dose oral powder (Miralax) escitalopram oxalate 10 mg tablet 10 mg PO QPM 02/02/24 02/05/24 History eszopiclone 2 mg tablet 2 mg PO QHS PRN sleep 02/02/24 Unknown History metoprolol tartrate 25 mg tablet 25 mg PO BID 02/02/24 02/05/24 History omega-3 acid ethyl esters 1 gram 2 cap PO DAILY 02/02/24 02/06/24 History capsule docusate sodium 100 mg capsule 100 mg PO DAILY PRN constipation 02/06/24 Unknown History Allergy/AdvReac Type Severity Reaction Status Date / Time latex Allergy Severe Rash Verified 02/06/24 15:12 adhesive Allergy Rash Verified 02/06/24 15:12 pregabalin (From Lyrica) AdvReac Nausea/Vom/ Verified 02/06/24 15:12 Diarrhea Family History Mother Hypertension High cholesterol Diabetes Surgical History History of esophagogastroduodenoscopy (EGD) History of back surgery Hx of total knee replacement Hx of foot surgery Hx of tubal ligation History of open heart surgery Social History Smoking Status: Never smoker alcohol intake: never substance use type: does not use ROS Review of Systems ROS Unobtainable: Denies due to encephalopathy Constitutional Constitutional: Denies anorexia, chills, fatigue, fever(s), malaise or weakness Eyes Eyes: Denies change in vision ENT HEENT: Denies dysphagia, headache(s), hearing loss or sore throat Cardiovascular Cardiovascular: Reports dyspnea on exertion and edema; Denies chest pain, lightheadedness, orthopnea, palpitations, paroxysmal nocturnal dyspnea, rapid heart rate or syncope Respiratory/Chest Respiratory/Chest: Reports dyspnea, shortness of breath at rest and shortness of breath with exertion; Denies cough, excessive phlegm production, hemoptysis, productive cough or wheezing Gastrointestinal Gastrointestinal: Denies abdominal pain, constipation, diarrhea, nausea or vomiting Genitourinary Genitourinary: Denies burning urination or dysuria Musculoskeletal Musculoskeletal: Denies back pain Neurologic Neurologic: Denies confusion, dizziness, focal weakness, headache(s), numbness, seizure-like activity, seizures or syncope Psychiatric Psychiatric: Denies anxiety or depression Endocrine Endocrinology: Denies change in body appearance Hematologic/Lymphatic Hematologic/Lymphatic: Denies anemia Vital Signs Vital Signs Vital Signs: 02/06/24 15:08 02/06/24 15:08 02/06/24 17:12 Temperature 97.3 F L Temperature Source Temporal Pulse Rate 73 14 L Respiratory Rate 14 83 H Respiratory Effort Short of Breath Respiratory Depth Shallow Respiratory Pattern Tachypnea Blood Pressure 210/81 H 202/71 H Blood Pressure Mean 124 114 Pulse Ox 98 99 Oxygen Delivery Method Room Air Room Air Oxygen Flow Rate (L/min) 02/06/24 17:14 02/06/24 17:17 02/06/24 17:34 Temperature Temperature Source Pulse Rate 60 Respiratory Rate 19 H Respiratory Effort Respiratory Depth Respiratory Pattern Blood Pressure 198/84 H 160/77 H Blood Pressure Mean 122 104 Pulse Ox 100 98 Oxygen Delivery Method Nasal Cannula Room Air Oxygen Flow Rate (L/min) 2 Weight Weight: 151 lb 10.848 oz Body Mass Index (BMI) 29.6 Physical Exam Const alert, oriented x3 and no apparent distress General Appearance: cooperative HEENT normocephalic, head/scalp atraumatic, hearing grossly normal bilaterally, moist oral mucous membranes and oropharynx normal Mouth: oral and palatal mucosa normal Eyes PERRL, EOMs intact bilaterally and conjunctivae normal Neck no lymphadenopathy and supple Resp Resp Narrative: moderately diminished breath sounds bibasally, no wheezes or crackles. On 2L of oxygen by nasal canula Cardio regular rate, regular rhythm, S1 normal heart sound, S2 normal heart sound and no murmurs GI normal to inspection, nondistended, normoactive bowel sounds, soft to palpation and non-tender Extremity normal to inspection, full ROM and no clubbing, cyanosis or edema Neuro oriented x3, CN's II-XII intact bilaterally, moves all extremities and no focal motor deficits Sensorium / Orientation: awake Motor Exam: strength 5/5 throughout Psych affect normal Results Lab / Micro Data 02/06/24 16:00 02/06/24 16:00 Labs: Laboratory Results - last 24 hr 02/06/24 16:00: WBC 8.9, RBC 3.67 L, Hgb 10.5 L, Hct 34.1 L, MCV 92.9, MCH 28.6, MCHC 30.8 L, RDW Std Deviation 42.5, RDW Coeff of Marleen 12.5, Plt Count 234, MPV 10.0, Immature Gran % (Auto) 0.400, Neut % (Auto) 74.5 H, Lymph % (Auto) 13.0 L, [place] % (Auto) 10.9 H, Eos % (Auto) 0.0, Baso % (Auto) 1.2 H, Absolute Neuts (auto) 6.6, Absolute Lymphs (auto) 1.16, Nucleated RBC % 0, Sodium 137, Potassium 3.7, Chloride 100, Carbon Dioxide 29.0, Anion Gap 8, BUN 25 H, C reatinine 1.26 H, Estim Creat Clear Calc 30.82, Est GFR (MDRD) Af Amer 53 L, Est GFR (MDRD) Non-Af 43 L, BUN/Creatinine Ratio 19.8, Glucose 165 H, Calcium 9.1, Troponin I High Sens 13, B-Natriuretic Peptide 288.3 H Imaging Radiology Impression Chest X-Ray 02/06/24 16:10 IMPRESSION: Cardiomegaly with minimal central pulmonary venous congestion and trace bilateral pleural effusions. Electronically Signed: Delano Mann MD at 17:31 EDT , Assessment & Plan Assessment/Plan (1) CHF (congestive heart failure): PLAN: Plan #Hypoxia due to heart failure with unknown EF * admit to PCU * CXR showed bilateral pleural effusion. * start on IV lasix 40mg bid. * fluid restriction to 1500cc daily. * get 2D echo * breathing treatment with bronchodilators. Titrate oxygen to maintain sats >90% * #Hypertension * BP markedly elevated; was in the 200s systolic. * says her BP comes down usually to the 130s. Had come down to 160/77. * Start on lisinopril. IV hydralazine prn. * # Depression: on escitalopram. #Type 2 diabetes mellitus * on glimepiride. Insulin sliding scale. * Accuchecks ACHS * DVT prophylaxis: lovenox Code status: full code * Patient counseled extensively about different types of CODE STATUS including full code, DNR CCA and DNR CCA. * Patient elects to be full code. * Total [id number] time 16 minutes. Charges/Coding Visit Charges Inpatient E&M: 19634 Init Hosp L3 Procedures Hospitalists Procedures: 31295 Advncd Care Plan 30 Min
--- NOTE | 2024-02-06 18:38 | ECHOD_ITS ---
Reason For Study: CHF Procedure This was a 2D Doppler, Color Flow transthoracic echocardiogram. Exam performed portable in patient room. Left Ventricle Moderate concentric left ventricular hypertrophy. Normal LV size. The left ventricular ejection fraction is 65 %. Diastolic function is indeterminate. Right Ventricle Normal right ventricle. Atria There is severe biatrial dilatation. Bubble contrast study is positive for PFO. Mitral Valve Moderate (2+) mitral valve insufficiency. Tricuspid Valve Moderate (2+) tricuspid valve insufficiency. Right ventricular systolic pressure estimated to be 57 mmHg. Aortic Valve Bioprosthetic aortic valve mean peak gradient 16 mmHg. Valve not well-visualized. Color flow turbulence noted in ascending aorta. Recommend cardiac MRI for further evaluation. Pulmonic Valve The pulmonic valve is not well visualized. Great Vessels Moderately dilated aortic root. Pericardium/Pleural No pericardial effusion. Medication Performed a rapid injection of agitated mix of 9 cc saline and 1cc air to assess for atrial septal defect. MMode/2D Measurements & Calculations LVIDd: 4.3 cm IVSd: 1.3 cm LVOT diam: 2.0 cm LVIDs: 2.8 cm LVPWd: 2.0 cm RVDd: 3.5 cm FS: 33.8 % LVOT area: 3.1 cm2 LAV(MOD-bp): 39.7 ml LVAd ap4: 20.2 cm2 SV(MOD-sp4): 34.1 ml LAV(MOD-bp) Indexed: 24.3 ml/m2 LVLd ap4: 6.7 cm LAV(MOD-sp2): 38.2 ml EDV(MOD-sp4): 50.1 ml LAV(MOD-sp4): 39.1 ml EDV(sp4-el): 51.6 ml LVAs ap4: 10.1 cm2 LVLs ap4: 5.6 cm ESV(MOD-sp4): 16.0 ml ESV(sp4-el): 15.5 ml EF(MOD-sp4): 68.1 % EF(sp4-el): 70.0 % SV(sp4-el): 36.1 ml LA A4 area: 17.0 cm2 LA dimension(2D): 4.5 cm RA A4 area: 19.3 cm2 TAPSE: 1.2 cm Time Measurements MV dec time: 0.26 sec Doppler Measurements & Calculations MV E max tung: 164.0 cm/sec Lat Peak E' Tung: 7.3 cm/sec Med Peak E' Tung: 4.4 cm/sec MV A max tung: 88.4 cm/sec E/E' lat: 22.6 E/E' med: 37.7 MV E/A: 1.9 MV V2 max: 178.4 cm/sec MV dec slope: 623.8 cm/sec2 Ao V2 max: 257.2 cm/sec MV max P.7 mmHg Ao max P.5 mmHg MV V2 mean: 73.6 cm/sec Ao V2 mean: 186.0 cm/sec MV mean P.1 mmHg Ao mean P.8 mmHg MV V2 VTI: 63.4 cm Ao V2 VTI: 65.2 cm MVA(VTI): 2.8 cm2 AV (velocity ratio): 0.89 GLYNN(I,D): 2.7 cm2 GLYNN(V,D): 2.4 cm2 LV V1 max: 203.1 cm/sec SV(LVOT): 178.0 ml TR max tung: 325.6 cm/sec LV V1 max P.5 mmHg TR max P.4 mmHg LV V1 mean P.4 mmHg LV V1 mean: 151.3 cm/sec LV V1 VTI: 57.9 cm ECHO/Echo Complete Interpretation Summary Moderate concentric left ventricular hypertrophy. The left ventricular ejection fraction is 65 %. Diastolic function is indeterminate. There is severe biatrial dilatation. Bubble contrast study is positive for PFO. Moderate (2+) mitral valve insufficiency. Moderate (2+) tricuspid valve insufficiency. Right ventricular systolic pressure estimated to be 57 mmHg. Bioprosthetic aortic valve mean peak gradient 16 mmHg. Valve not well-visualize d. Color flow turbulence noted in ascending aorta. Recommend cardiac MRI for further evaluati on. Moderately dilated aortic root. Ordering Physician: Shabnam Davila Referring Physician: LINA PCP Performed By: Noemi Vines RCS
[2024-02-06 19:34] LABS: Troponin-I HS 18 pg/mL (3.0-54.0)
[2024-02-06] MEDS: morphine SR 15 MG Tablet PO (22:02)
[2024-02-06] MEDS: Escitalopram Oxalate 10 MG Tablet PO (22:02)
[2024-02-06] MEDS: Metoprolol Tartrate 25 MG Tablet PO (22:02)
[2024-02-06] MEDS: Docusate Sodium 100 MG Capsule PO (22:02)
[2024-02-06 22:38] LABS: Troponin-I HS 19 pg/mL (3.0-54.0)
[2024-02-06] MEDS: hydrALAZINE 20 MG/ML Vial 10 MG IV (23:33)
[2024-02-06] MEDS: 0.9% Saline Lock 10 ML Syringe IV (23:33)
[2024-02-07] VITALS (9 sets, daily range): BP systolic 138–188; BP diastolic 51–78; PULSE 51–57; RESP 14–18; TEMP 36.4–36.8; O2SAT 84–97
[2024-02-07] MEDS: Acetaminophen 325 MG Tablet 650 MG PO (04:35)
[2024-02-07 05:29] LABS: Absolute Lymphocyte Count 1.56 X10^3/uL (0.83-4.51); Basophil# 0.11 X10^3/uL; Basophil% 1.2 % (0-1); Hemoglobin 10.4 g/dL (12.0-15.0); Lymphocyte # 1.56 X10^3/ul (0.83-4.51); Lymphocyte % 17.4 % (19-41); Mean Corp Hgb Conc 30.6 g/dL (32-36); Mean Corpuscular Hgb 28.6 pg (27.0-32.0); Mean Corpuscular Volume 93.4 fL (81-99); Mean Platelet Vol. 9.7 fl (6.2-12.0); Monocyte# 1.28 X10^3/uL; Monocyte% 14.3 % (0-10); NRBC Flagged by Analyzer 0 % (0-5); Neutrophil # 5.95 X10^3/uL (2.7-7.7); Neutrophil % 66.7 % (47-70); Platelet Count 247 K/mm3 (150-450); RBC Distribution Width CV 12.6 % (11.6-14.6); RBC Distribution Width SD 42.6 fl (35.1-43.9); Red Blood Count 3.64 M/mm3 (4.2-5.4); White Blood Count 8.9 K/mm3 (4.4-11.0)
[2024-02-07 05:52] LABS: Anion Gap 5 (5-15); BUN 24 mg/dL (7-18); BUN/Creat Ratio 21.1 RATIO (10-20); Calcium,Total 8.8 mg/dL (8.5-10.1); Chloride 103 mmol/L (98-107); Creatinine, Serum 1.14 mg/dL (0.55-1.02); EST Glomerular Filtration Rate 49 mL/min (>60); Est Glom Filt Rate - Afr Amer 59 mL/min (>60); Estimated Creatinine Clearance 33.59 ml/min; Glucose 83 mg/dL (74-106); Potassium 3.4 mmol/L (3.5-5.1); Sodium Level 138 mmol/L (136-145)
[2024-02-07 07:11] LABS: Bedside Glucose 86 mg/dL (74-106)
[2024-02-07] MEDS: Omega-3 Acid Ethyl Esters 1 GM Capsule PO (08:03)
[2024-02-07] MEDS: Glimepiride 2 MG Tablet PO (08:03)
[2024-02-07] MEDS: Furosemide 40 MG/4 ML Vial IV ×2 (08:04→18:24)
[2024-02-07] MEDS: Metoprolol Tartrate 25 MG Tablet PO ×2 (08:04→21:23)
[2024-02-07] MEDS: Lisinopril 20 MG Tablet 30 MG PO (08:04)
[2024-02-07] MEDS: Enoxaparin 40 MG/0.4 ML Syringe SC (08:05)
--- NOTE | 2024-02-07 08:27 | PN.HOSP_ITS ---
Reason for Visit Reason for Visit: Diagnoses Heart failure, unspecified (02/06/24) Subjective Subjective Patient is an 78-year-old lady who was admitted with a week history of progressive shortness of breath with associated edema and assessment of acute congestive heart failure made admitted to monitored bed for further management Objective Data Objective Data Vital Signs: Vital Signs Temp Pulse Resp BP Pulse Ox O2 Del Method O2 Flow Rate 98.3 F 57 L 14 156/54 H 96 Room Air 2 02/07/24 08:02 02/07/24 08:04 02/07/24 08:02 02/07/24 08:02 02/07/24 08:02 02/07/24 08:02 02/06/24 18:42 Oxygen Flow Rate (L/min) 2 Oxygen Delivery Method Room Air Weight: 66.9 kg Body Mass Index (BMI) 28.8 Intake & Output: Intake and Output for Last 24 Hours 02/05/24 02/06/24 02/07/24 23:59 23:59 23:59 Intake Total 120 / 120 100 / 100 Output Total 250 / 250 300 / 300 Balance -130 / -130 -200 / -200 Lab / Micro Data 02/07/24 05:08 02/07/24 05:08 Labs: Laboratory Results - last 24 hr 02/06/24 16:00: WBC 8.9, RBC 3.67 L, Hgb 10.5 L, Hct 34.1 L, MCV 92.9, MCH 28.6, MCHC 30.8 L, RDW Std Deviation 42.5, RDW Coeff of Marleen 12.5, Plt Count 234, MPV 10.0, Immature Gran % (Auto) 0.400, Neut % (Auto) 74.5 H, Lymph % (Auto) 13.0 L, [place] % (Auto) 10.9 H, Eos % (Auto) 0.0, Baso % (Auto) 1.2 H, Absolute Neuts (auto) 6.6, Absolute Lymphs (auto) 1.16, Nucleated RBC % 0, Sodium 137, Potassium 3.7, Chloride 100, Carbon Dioxide 29.0, Anion Gap 8, BUN 25 H, C reatinine 1.26 H, Estim Creat Clear Calc 30.82, Est GFR (MDRD) Af Amer 53 L, Est GFR (MDRD) Non-Af 43 L, BUN/Creatinine Ratio 19.8, Glucose 165 H, Calcium 9.1, Troponin I High Sens 13, B-Natriuretic Peptide 288.3 H 02/06/24 18:55: Troponin I High Sens 18 02/06/24 22:03: Troponin I High Sens 19 02/07/24 05:08: WBC 8.9, RBC 3.64 L, Hgb 10.4 L, Hct 34.0 L, MCV 93.4, MCH 28.6, MCHC 30.6 L, RDW Std Deviation 42.6, RDW Coeff of Marleen 12.6, Plt Count 247, MPV 9.7, Immature Gran % (Auto) 0.400, Neut % (Auto) 66.7, Lymph % (Auto) 17.4 L, M sherwin % (Auto) 14.3 H, Eos % (Auto) 0.0, Baso % (Auto) 1.2 H, Absolute Neuts (auto) 6.0, Absolute Lymphs (auto) 1.56, Nucleated RBC % 0, Sodium 138, P otassium 3.4 L, Chloride 103, Carbon Dioxide 30.0, Anion Gap 5, BUN 24 H, C reatinine 1.14 H, Estim Creat Clear Calc 33.59, Est GFR (MDRD) Af Amer 59 L, Est GFR (MDRD) Non-Af 49 L, BUN/Creatinine Ratio 21.1 H, Glucose 83, Calcium 8.8 02/07/24 06:44: POC Glucose 86 Radiography Diagnostic Testing: Radiology Impression Chest X-Ray 02/06/24 16:10 IMPRESSION: Cardiomegaly with minimal central pulmonary venous congestion and trace bilateral pleural effusions. Electronically Signed: Delano Mann MD at 17:31 EDT , Physical Exam Narrative GENERAL: cooperative HEENT: Atraumatic; normocephalic EYES; Anicteric, Normal Conjunctiva NECK; supple, normal thyroid, RESPIRATORY: Diminished to auscultation CARDIOVASCULAR: Regular S1 S2, GI: soft, normoactive bowel sounds, : No Renal angle tenderness; EXTREMITIES: Bipedal edema, no clubbing, MUSCULOSKELETAL: no muscle wasting NEURO: Awake; no lateralizing signs. SKIN: No Rash PSYCH; Flat affect Assessment & Plan Assessment/Plan (1) CHF (congestive heart failure): PLAN: Plan Patient is an 78-year-old lady who was admitted with a week history of progressive shortness of breath with associated edema and assessment of acute congestive heart failure made admitted to monitored bed for further management 1. Acute hypoxia ? Secondary to acute congestive heart failure admitted to regular nursing floor with treatment of the underlying condition. Patient please on supplemental oxygen titrated to keep saturation greater than 90. Plan is for patient to be assessed for home oxygen needs prior to being discharged 2.Acute congestive heart failure ? EF unknown. Patient has been admitted to a monitored nursing floor managed with strict input and output, daily weight, low-sodium diet as well as diuretic therapy as part of his management 2D echo ordered for EF assessment 3. Acute hypertensive emergency ? Patient presented with evidence of endorgan damage?CHF. Systolic blood pressure on admission was greater than 200. Home medications resumed also added hydralazine as needed for systolic blood pressure greater than 160 4. Diabetes mellitus type II -patient's oral hypoglycemics held. Placed on long acting insulin, Accu-Cheks a.c. and at bedtime and covered with sliding scale insulin 5. Depression ? Patient is on escitalopram did continue 6. Hypokalemia -Corrected per protocol 7. DVT prophylaxis - On enoxaparin Time spent in the patient's overall evaluation,decision-making process, review of diagnostic data, adjustment of management, discussion with other providers, nursing nursing and ancillary staff involved in patient's care documentation, 50 Minutes Charges/Coding Visit Charges Inpatient E&M: 51706 [place] [id number]
--- NOTE | 2024-02-07 09:15 | CASEMGMT ---
RN CM Face to Face with patient for initial transition planning/care coordination assessment. RN CM introduced self and role at [facility]. Patient lying in bed, alert and oriented. Patient willing to participate in assessment and is able to answer all questions appropriately. Care providers, pharmacy, and demographics verified. PCP: Darrel Specialists: Jose joss house keeper Preferred Pharmacy: [facility], [place] Insurance: [employer] Prescription Benefit: yes Living Will/HPOA: yes, son Yoan Stephens LNOK: son, daughters Living Arrangements: Patient lives with daughter in a single story home with no steps to enter. Patient is independent at home. Transportation: self, daughter DME/HHC: Patient states she has shower chair, raised toilet, cane, walker, and glucometer at home. No previous SNF. Patient has had HHC in the past but could not recall agency. Will monitor for home oxygen at discharge. Patient would like [employer] for DME, green sheet placed on chart. Patient wishes to discharge home, denies need for home health at this time. Patient states she has no further needs or concerns at this time. CM to follow for discharge planning needs that may arise. Disposition Plan: Patient to discharge home with family support and follow-up plans in place. Susanna LANE, RN, CM
--- NOTE | 2024-02-07 09:46 | DS.PCM_ITS ---
Providers Date of Admission: 02/06/24 Primary Care Physician: DENILSON HERNANDEZ Reason For Visit: ACUTE HEART FAILURE Diagnosis Discharge Diagnosis (1) CHF (congestive heart failure): Status: Acute Code(s): I50.9 - Heart failure, unspecified Plan Patient is an 78-year-old lady who was admitted with a week history of progressive shortness of breath with associated edema and assessment of acute congestive heart failure made admitted to monitored bed for further management 1. Acute hypoxia ? Secondary to acute congestive heart failure admitted to regular nursing floor with treatment of the underlying condition. Patient please on supplemental oxygen titrated to keep saturation greater than 90. Plan is for patient to be assessed for home oxygen needs prior to being discharged 2.Acute congestive heart failure with preserved ejection fraction ? EF unknown. Patient has been admitted to a monitored nursing floor managed with strict input and output, daily weight, low-sodium diet as well as diuretic therapy as part of his management 2D echo ordered for EF assessment ?Echo findings as per Moderate concentric left ventricular hypertrophy. The left ventricular ejection fraction is 65 %. Diastolic function is indeterminate. There is severe biatrial dilatation. Bubble contrast study is positive for PFO. Moderate (2+) mitral valve insufficiency. Moderate (2+) tricuspid valve insufficiency. Right ventricular systolic pressure estimated to be 57 mmHg. Bioprosthetic aortic valve mean peak gradient 16 mmHg. Valve not well- visualized. Color flow turbulence noted in ascending aorta. Recommend cardiac MRI for further evaluation. Moderately dilated aortic root. 3. Acute hypertensive emergency ? Patient presented with evidence of endorgan damage?CHF. Systolic blood pressure on admission was greater than 200. Home medications resumed also added hydralazine as needed for systolic blood pressure greater than 160 4. Diabetes mellitus type II -patient's oral hypoglycemics held. Placed on long acting insulin, Accu-Cheks a.c. and at bedtime and covered with sliding scale insulin 5. Depression ? Patient is on escitalopram did continue 6. Hypokalemia -Corrected per protocol 7. DVT prophylaxis - On enoxaparin Time spent in the patient's overall evaluation,decision-making process, review of diagnostic data, adjustment of management, discussion with other providers, nursing nursing and ancillary staff involved in patient's care documentation, 50 Minutes Medications at Discharge Home Medications blood sugar diagnostic (True Metrix Glucose Test Strip) #10 ea 07/29/23 glimepiride 2 mg tablet 2 mg PO DAILY 07/29/23 lancets 33 gauge (TRUEplus Lancets) #100 ea 07/29/23 lisinopril 30 mg tablet 30 mg PO DAILY 07/29/23 morphine 15 mg tablet,extended release 15 mg PO Q12H 07/29/23 methylcellulose (laxative) (Citrucel Sugar Free oral powder) 2 g PO DAILY PRN constipation 01/13/24 polyethylene glycol 3350 17 gram/dose oral powder (Miralax) 4 g PO DAILY PRN constipation 01/13/24 escitalopram oxalate 10 mg tablet 10 mg PO QPM 02/02/24 eszopiclone 2 mg tablet 2 mg PO QHS PRN sleep 02/02/24 metoprolol tartrate 25 mg tablet 25 mg PO BID 02/02/24 omega-3 acid ethyl esters 1 gram capsule 2 cap PO DAILY 02/02/24 docusate sodium 100 mg capsule 100 mg PO DAILY PRN constipation 02/06/24 acetaminophen 325 mg tablet 650 mg (2 x 325 mg) PO Q6H PRN PRN Pain 1-10 Or Fever >100.7 #0 tabs 02/07/24 furosemide 40 mg tablet (Lasix) 40 mg PO DAILY #60 tabs 02/07/24 potassium chloride 20 mEq tablet,extended release(part/cryst) 20 meq PO DAILY #30 tabs 02/07/24 Physical Exam Narrative GENERAL: cooperative HEENT: Atraumatic; normocephalic EYES; Anicteric, Normal Conjunctiva NECK; supple, normal thyroid, RESPIRATORY: Diminished to auscultation CARDIOVASCULAR: Regular S1 S2, GI: soft, normoactive bowel sounds, : No Renal angle tenderness; EXTREMITIES: Bipedal edema, no clubbing, MUSCULOSKELETAL: no muscle wasting NEURO: Awake; no lateralizing signs. SKIN: No Rash PSYCH; Flat affect Weight / BMI Weight Weight: 66.9 kg Body Mass Index (BMI) 28.8 ABG / Lab / Microbiology Data 02/07/24 05:08 02/07/24 05:08 Laboratory: Laboratory Results - last 24 hr 02/06/24 16:00: WBC 8.9, RBC 3.67 L, Hgb 10.5 L, Hct 34.1 L, MCV 92.9, MCH 28.6, MCHC 30.8 L, RDW Std Deviation 42.5, RDW Coeff of Marleen 12.5, Plt Count 234, MPV 10.0, Immature Gran % (Auto) 0.400, Neut % (Auto) 74.5 H, Lymph % (Auto) 13.0 L, [place] % (Auto) 10.9 H, Eos % (Auto) 0.0, Baso % (Auto) 1.2 H, Absolute Neuts (auto) 6.6, Absolute Lymphs (auto) 1.16, Nucleated RBC % 0, Sodium 137, Potassium 3.7, Chloride 100, Carbon Dioxide 29.0, Anion Gap 8, BUN 25 H, C reatinine 1.26 H, Estim Creat Clear Calc 30.82, Est GFR (MDRD) Af Amer 53 L, Est GFR (MDRD) Non-Af 43 L, BUN/Creatinine Ratio 19.8, Glucose 165 H, Calcium 9.1, Troponin I High Sens 13, B-Natriuretic Peptide 288.3 H 02/06/24 18:55: Troponin I High Sens 18 02/06/24 22:03: Troponin I High Sens 19 02/07/24 05:08: WBC 8.9, RBC 3.64 L, Hgb 10.4 L, Hct 34.0 L, MCV 93.4, MCH 28.6, MCHC 30.6 L, RDW Std Deviation 42.6, RDW Coeff of Marleen 12.6, Plt Count 247, MPV 9.7, Immature Gran % (Auto) 0.400, Neut % (Auto) 66.7, Lymph % (Auto) 17.4 L, M sherwin % (Auto) 14.3 H, Eos % (Auto) 0.0, Baso % (Auto) 1.2 H, Absolute Neuts (auto) 6.0, Absolute Lymphs (auto) 1.56, Nucleated RBC % 0, Sodium 138, P otassium 3.4 L, Chloride 103, Carbon Dioxide 30.0, Anion Gap 5, BUN 24 H, C reatinine 1.14 H, Estim Creat Clear Calc 33.59, Est GFR (MDRD) Af Amer 59 L, Est GFR (MDRD) Non-Af 49 L, BUN/Creatinine Ratio 21.1 H, Glucose 83, Calcium 8.8 02/07/24 06:44: POC Glucose 86 Radiography Diagnostic Testing: Radiology Impression Chest X-Ray 02/06/24 16:10 IMPRESSION: Cardiomegaly with minimal central pulmonary venous congestion and trace bilateral pleural effusions. Electronically Signed: Delano Mann MD at 17:31 EDT , D/C Instructions Discharge Diet: 8 Cup Fluid Restriction and 2000 mg Sodium Diet Discharge Activity: Return to Normal Activity Call your doctor if you observe: Fever of 101 or Higher, Shortness of breath, Fainting spells and Chest pain Meaningful Use Info Ischemic Stroke Statin Dosing Therapy Reference: STATIN DOSE THERAPY REFERENCE: * Patients > 75 years receive moderate or high dose statin therapy. * Patients 75 years or YOUNGER should receive HIGH intensity statin dose unless contraindicated. You will be required to document reason for non-treatment if statin daily dose does not meet guidelines. HIGH DOSE STATIN THERAPY DAILY Atorvastatin > than or = to 40 mg Rosuvastatin > than or = to 20 mg Amlodipine + Atorvastatin > than or = to 2.5/40 mg Ezetimibe + Simvastatin 10/80 mg Simvastatin 80mg Discharge Plan Admission Admit Date/Time: 02/06/24 17:57 Attending Provider: Denilsno Pollard Primary Care Provider: DENILSON HERNANDEZ Consulting Providers: Shabnam Davila Discharge Orders/Prescriptions Prescriptions: New acetaminophen 325 mg Tablet 650 mg PO Q6H PRN PRN (Reason: Pain 1-10 Or Fever >100.7) Qty: 0 0RF potassium chloride 20 mEq Tablet,Er Particles/Crystals 20 meq PO DAILY Qty: 30 0RF furosemide [Lasix] 40 mg tablet 40 mg PO DAILY Qty: 60 0RF Continued morphine 15 mg tablet extended release 15 mg PO Q12H glimepiride 2 mg tablet 2 mg PO DAILY lisinopril 30 mg tablet 30 mg PO DAILY (DME) True Metrix Glucose Test Strip Strip See Rx Instructions .ROUTE .MEDSUPPLY Qty: 10 Patient Comments: USE DIRECTED ONCE DAILY Rx Instructions: As directed (DME) lancets [TRUEplus Lancets] 33 gauge misc See Rx Instructions .ROUTE .MEDSUPPLY Qty: 100 Patient Comments: USE DIRECTED ONCE DAILY Rx Instructions: As directed polyethylene glycol 3350 [Miralax] 17 gram/dose powder 4 g PO DAILY PRN (Reason: constipation) Citrucel Sugar Free Powder 2 g PO DAILY PRN (Reason: constipation) escitalopram oxalate 10 mg tablet 10 mg PO QPM metoprolol tartrate 25 mg tablet 25 mg PO BID omega-3 acid ethyl esters 1 gram capsule 2 cap PO DAILY eszopiclone 2 mg tablet 2 mg PO QHS PRN (Reason: sleep) docusate sodium 100 mg capsule 100 mg PO DAILY PRN (Reason: constipation) Discontinued furosemide 20 mg tablet 20 mg PO DAILY PRN (Reason: edema) Referrals / Follow Up: DENILSON HERNANDEZ [Other] DENILSON HERNANDEZ [Other] Disposition Disposition (needs filled in before D/C Order can be placed): Home, Self Care Charges/Coding Visit Charges Inpatient E&M: 34655 Disch Hosp >30min
[2024-02-07] MEDS: morphine SR 15 MG Tablet PO ×2 (10:32→21:24)
[2024-02-07 13:28] LABS: D-Dimer Quantitative (DVT/PE) 0.78 FEU/ug/m (0.27-0.49)
--- NOTE | 2024-02-07 13:53 | CT_ITS ---
EXAM: CT ANGIOGRAPHY CHEST WITHOUT AND WITH INTRAVENOUS CONTRAST CLINICAL INDICATION: Elevated d-dimer TECHNIQUE: Helically acquired angiography images were obtained of the chest without and with intravenous contrast. This CT exam was performed using one or more of the following dose reduction techniques: automated exposure control, adjustment of the mA and/or kV according to patient size, and/or use of iterative reconstruction technique. MIP reconstructed images were created and reviewed. CONTRAST: IV 100mL [id number] COMPARISON: CTA chest, 02/02/2024 and chest radiograph, 02/06/2024. FINDINGS: PULMONARY ARTERIES: No significant abnormality. Normal in caliber. No evidence of pulmonary embolism. AORTA: 4.4 cm ascending aortic ectasia. Atherosclerosis of the aorta. No evidence of a dissection. GREAT VESSELS OF AORTIC ARCH: No significant abnormality. Normal in caliber. No evidence of dissection. LUNGS AND PLEURAL SPACES: No significant abnormality. No mass. No consolidation or edema. No pleural effusion or thickening. No pneumothorax. 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 Likely aortic valve replacement changes. No significant cardiomegaly and/or pericardial effusion. MEDIASTINUM: No significant abnormality. No mediastinal or hilar adenopathy. Esophagus is unremarkable. No hiatal hernia. THYROID: No significant abnormality. No thyroid lesions. BONES/JOINTS: Status post median sternotomy. No suspicious lytic or blastic abnormality. CT/CTA Chest W/WO Contrast IMPRESSION: 1. No evidence of pulmonary artery embolus. 2. 4.4 cm ascending aortic ectasia. Atherosclerosis of the aorta. No evidence of a dissection. 3. Coronary artery calcifications and likely status post CABG. Likely aortic valve replacement changes. No significant cardiomegaly and/or pericardial effusion. Electronically Signed: Adeel Martinez DO at 16:20 EDT ,
--- NOTE | 2024-02-07 13:53 | VDLE_ITS ---
Reason For Study: Elevated D-dimer RIGHT LEFT GSV is normal. GSV is normal. CFV is compressible, spontaneous, phasic, CFV is compressible, spontaneous, phasic, competent and demonstrates normal competent, and demonstrates normal augmentation. augmentation. FV is compressible, spontaneous, phasic, FV is compressible, spontaneous, phasic, competent and demonstrates normal competent and demonstrates normal augmentation. augmentation. POP V is compressible, spontaneous, phasic, POP V is compressible, spontaneous, phasic, competent and demonstrates normal competent and demonstrates normal augmentation. augmentation. T/P Trunk is compressible. T/P Trunk is compressible. PTV is compressible. PTV is compressible. RT PerV is compressible. LT PerV is compressible. Procedure This is a venous duplex using B-mode, color flow and spectral Doppler. Exam performed portable in patient room. A preliminary report was called and/or faxed to [facility]. VL/Venous Duplex US - Pelon Extrem Interpretation Summary Deep veins of the bilateral lower extremities are patent and compressible segme ntally. There is no evidence of bilateral lower extremity deep vein thrombosis. The bilateral great saphenous veins appear patent and compressible segmentally. Ordering Physician: Leo Pollard Performed By: Susanna Cohen RVT
[2024-02-07] MEDS: Potassium Chloride Oral Tablet 20 MEQ PO (16:19)
[2024-02-07] MEDS: Magnesium Citrate 300 ML 150 ML PO (16:19)
[2024-02-07 16:40] LABS: Bedside Glucose 89 mg/dL (74-106)
[2024-02-07 16:47] LABS: Bedside Glucose 131 mg/dL (74-106)
[2024-02-07 16:47] LABS: Bedside Glucose 77 mg/dL (74-106)
[2024-02-07] MEDS: 0.9% Saline Lock 10 ML Syringe IV (18:23)
[2024-02-07] MEDS: Escitalopram Oxalate 10 MG Tablet PO (21:24)
[2024-02-07 21:46] LABS: Bedside Glucose 149 mg/dL (74-106)
[2024-02-08] VITALS (8 sets, daily range): BP systolic 131–157; BP diastolic 47–54; PULSE 51–56; RESP 16–18; TEMP 36.4–36.8; O2SAT 93–97
[2024-02-08 06:23] LABS: Bedside Glucose 109 mg/dL (74-106)
--- NOTE | 2024-02-08 08:07 | PN.HOSP_ITS ---
Reason for Visit Reason for Visit: Diagnoses Heart failure, unspecified (02/06/24) Subjective Subjective Patient seen attempt to discharge patient the day prior unsuccessful she did require oxygen. Moreover patient is scheduled to undergo cardiac MRI per Recommendations from cardiology on 02/09/2024. Patient had elevated D-dimer CTA was negative for PE. Objective Data Objective Data Vital Signs: Vital Signs Temp Pulse Resp BP Pulse Ox O2 Del Method O2 Flow Rate 98.0 F 51 L 16 131/54 H 95 Room Air 2 02/08/24 03:15 02/08/24 03:15 02/08/24 03:15 02/08/24 03:15 02/08/24 03:15 02/08/24 03:20 02/07/24 11:53 Oxygen Flow Rate (L/min) [ 2 AMBULATING with Oxygen #1] Oxygen Flow Rate (L/min) [ 0 AMBULATING on Room Air] Oxygen Flow Rate (L/min) [At 0 REST on Room Air] Oxygen Flow Rate (L/min) 2 Oxygen Delivery Method Room Air Weight: 66.9 kg Body Mass Index (BMI) 28.8 Intake & Output: Intake and Output for Last 24 Hours 02/06/24 02/07/24 02/08/24 23:59 23:59 23:59 Intake Total 120 / 120 640 / 1000 360 / 360 Output Total 250 / 250 800 / 1100 400 / 400 Balance -130 / -130 -160 / -100 -40 / -40 Lab / Micro Data 02/08/24 08:41 02/08/24 08:20 Labs: Laboratory Results - last 24 hr 02/06/24 21:50: POC Glucose 89 02/07/24 11:36: POC Glucose 131 H 02/07/24 12:50: D-Dimer Quant (PE/DVT) 0.78 H* 02/07/24 16:27: POC Glucose 77 02/07/24 21:23: POC Glucose 149 H 02/08/24 06:04: POC Glucose 109 H Radiography Diagnostic Testing: Radiology Impression Echocardiogram 02/06/24 18:38 Interpretation Summary Moderate concentric left ventricular hypertrophy. The left ventricular ejection fraction is 65 %. Diastolic function is indeterminate. There is severe biatrial dilatation. Bubble contrast study is positive for PFO. Moderate (2+) mitral valve insufficiency. Moderate (2+) tricuspid valve insufficiency. Right ventricular systolic pressure estimated to be 57 mmHg. Bioprosthetic aortic valve mean peak gradient 16 mmHg. Valve not well- visualized. Color flow turbulence noted in ascending aorta. Recommend cardiac MRI for further evaluation. Moderately dilated aortic root. Ordering Physician: Shabnam Davila Referring Physician: LINA PCP Performed By: Noemi Vines RCS Chest CTA 02/07/24 13:53 IMPRESSION: 1. No evidence of pulmonary artery embolus. 2. 4.4 cm ascending aortic ectasia. Atherosclerosis of the aorta. No evidence of a dissection. 3. Coronary artery calcifications and likely status post CABG. Likely aortic valve replacement changes. No significant cardiomegaly and/or pericardial effusion. Electronically Signed: Adeel Martinez DO at 16:20 EDT , Physical Exam Narrative GENERAL: cooperative HEENT: Atraumatic; normocephalic EYES; Anicteric, Normal Conjunctiva NECK; supple, normal thyroid, RESPIRATORY: Diminished to auscultation CARDIOVASCULAR: Regular S1 S2, GI: soft, normoactive bowel sounds, : No Renal angle tenderness; EXTREMITIES: Bipedal edema, no clubbing, MUSCULOSKELETAL: no muscle wasting NEURO: Awake; no lateralizing signs. SKIN: No Rash PSYCH; Flat affect Assessment & Plan Assessment/Plan (1) CHF (congestive heart failure): PLAN: Plan Patient is an 78-year-old lady who was admitted with a week history of progressive shortness of breath with associated edema and assessment of acute congestive heart failure made admitted to monitored bed for further management 1. Acute hypoxia ? Secondary to acute congestive heart failure admitted to regular nursing floor with treatment of the underlying condition. Patient please on supplemental oxygen titrated to keep saturation greater than 90. Plan is for patient to be assessed for home oxygen needs prior to being discharged ? 02/09/2024 patient has been weaned off oxygen plan is to attempt to assess for home oxygen needs prior to discharge 2.Acute congestive heart failure with preserved ejection fraction ? EF unknown. Patient has been admitted to a monitored nursing floor managed with strict input and output, daily weight, low-sodium diet as well as diuretic therapy as part of his management 2D echo ordered for EF assessment ?Echo findings Moderate concentric left ventricular hypertrophy. The left ventricular ejection fraction is 65 %. Diastolic function is indeterminate. There is severe biatrial dilatation. Bubble contrast study is positive for PFO. Moderate (2+) mitral valve insufficiency. Moderate (2+) tricuspid valve insufficiency. Right ventricular systolic pressure estimated to be 57 mmHg. Bioprosthetic aortic valve mean peak gradient 16 mmHg. Valve not well-visualized. Color flow turbulence noted in ascending aorta. Recommend cardiac MRI for further evaluation. Moderately dilated aortic root. -02/08/2024 scheduled; scheduled to undergo cardiac MRI in a.m. 3. Acute hypertensive emergency ? Patient presented with evidence of endorgan damage?CHF. Systolic blood pressure on admission was greater than 200. Home medications resumed also added hydralazine as needed for systolic blood pressure greater than 160 4. Diabetes mellitus type II -patient's oral hypoglycemics held. Placed on long acting insulin, Accu-Cheks a.c. and at bedtime and covered with sliding scale insulin 5. Depression ? Patient is on escitalopram did continue 6. Hypokalemia -Corrected per protocol 7. DVT prophylaxis - On enoxaparin 8. Elevated D-dimer ? CTA obtained the day prior results are as below - No evidence of pulmonary artery embolus. 4.4 cm ascending aortic ectasia. Atherosclerosis of the aorta. No evidence of a dissection. Coronary artery calcifications and likely status post CABG. Likely aortic valve replacement changes. No significant cardiomegaly and/or pericardial effusion. Time spent in the patient's overall evaluation,decision-making process, review of diagnostic data, adjustment of management, discussion with other providers, nursing nursing and ancillary staff involved in patient's care documentation, 35 Minutes Charges/Coding Visit Charges Inpatient E&M: 41986 Subs Hosp L2
[2024-02-08 08:52] LABS: Absolute Lymphocyte Count 1.24 X10^3/uL (0.83-4.51); Absolute Neutrophil Count 6.1 X10^3/uL (2.0-7.7); Basophil% 1.2 % (0-1); Hematocrit 36.8 % (37-47); Hemoglobin 11.3 g/dL (12.0-15.0); Lymphocyte # 1.24 X10^3/ul (0.83-4.51); Lymphocyte % 14.4 % (19-41); Mean Corp Hgb Conc 30.7 g/dL (32-36); Mean Corpuscular Hgb 28.8 pg (27.0-32.0); Mean Corpuscular Volume 93.9 fL (81-99); Mean Platelet Vol. 9.3 fl (6.2-12.0); Monocyte# 1.14 X10^3/uL; Monocyte% 13.3 % (0-10); NRBC Flagged by Analyzer 0 % (0-5); Neutrophil # 6.08 X10^3/uL (2.7-7.7); Neutrophil % 70.6 % (47-70); Platelet Count 266 K/mm3 (150-450); RBC Distribution Width CV 12.8 % (11.6-14.6); RBC Distribution Width SD 43.8 fl (35.1-43.9); Red Blood Count 3.92 M/mm3 (4.2-5.4); White Blood Count 8.6 K/mm3 (4.4-11.0)
[2024-02-08 09:04] LABS: Anion Gap 5 (5-15); BUN 26 mg/dL (7-18); BUN/Creat Ratio 20.3 RATIO (10-20); Calcium,Total 8.9 mg/dL (8.5-10.1); Chloride 103 mmol/L (98-107); Creatinine, Serum 1.28 mg/dL (0.55-1.02); EST Glomerular Filtration Rate 43 mL/min (>60); Est Glom Filt Rate - Afr Amer 52 mL/min (>60); Estimated Creatinine Clearance 29.92 ml/min; Glucose 124 mg/dL (74-106); Magnesium 3.4 mg/dL (1.6-2.6); Phosphorus 4.7 mg/dL (2.5-4.9); Potassium 4.1 mmol/L (3.5-5.1); Sodium Level 139 mmol/L (136-145)
[2024-02-08] MEDS: Glimepiride 2 MG Tablet PO (10:34)
[2024-02-08] MEDS: Potassium Chloride Oral Tablet 20 MEQ PO ×2 (10:34→17:15)
[2024-02-08] MEDS: Omega-3 Acid Ethyl Esters 1 GM Capsule PO (10:34)
[2024-02-08] MEDS: Metoprolol Tartrate 25 MG Tablet PO ×2 (10:35→21:11)
[2024-02-08] MEDS: Furosemide 40 MG/4 ML Vial IV ×2 (10:35→17:15)
[2024-02-08] MEDS: Lisinopril 20 MG Tablet 30 MG PO (10:36)
[2024-02-08] MEDS: Enoxaparin 40 MG/0.4 ML Syringe SC (10:36)
[2024-02-08] MEDS: morphine SR 15 MG Tablet PO ×2 (10:51→21:11)
[2024-02-08 12:30] LABS: Bedside Glucose 242 mg/dL (74-106)
[2024-02-08 17:45] LABS: Bedside Glucose 127 mg/dL (74-106)
[2024-02-08] MEDS: Escitalopram Oxalate 10 MG Tablet PO (21:11)
[2024-02-08 21:34] LABS: Bedside Glucose 190 mg/dL (74-106)
[2024-02-09 03:15] VITALS: BP 103/62; PULSE 53; RESP 18; TEMP 36.4; O2SAT 96
[2024-02-09 05:32] LABS: Absolute Lymphocyte Count 1.71 X10^3/uL (0.83-4.51); Absolute Neutrophil Count 6.6 X10^3/uL (2.0-7.7); Basophil# 0.09 X10^3/uL; Basophil% 0.9 % (0-1); Hematocrit 34.6 % (37-47); Hemoglobin 10.6 g/dL (12.0-15.0); Lymphocyte # 1.71 X10^3/ul (0.83-4.51); Lymphocyte % 17.1 % (19-41); Mean Corp Hgb Conc 30.6 g/dL (32-36); Mean Corpuscular Hgb 28.9 pg (27.0-32.0); Mean Corpuscular Volume 94.3 fL (81-99); Mean Platelet Vol. 9.5 fl (6.2-12.0); Monocyte# 1.58 X10^3/uL; Monocyte% 15.8 % (0-10); NRBC Flagged by Analyzer 0 % (0-5); Neutrophil # 6.59 X10^3/uL (2.7-7.7); Neutrophil % 65.7 % (47-70); POSITIVE DIFFERENTIAL YES; Platelet Count 265 K/mm3 (150-450); RBC Distribution Width CV 12.8 % (11.6-14.6); RBC Distribution Width SD 44.5 fl (35.1-43.9); Red Blood Count 3.67 M/mm3 (4.2-5.4)
[2024-02-09 06:08] LABS: Differential Indicated SCAN CRITERIA MET
[2024-02-09 06:28] LABS: Bedside Glucose 72 mg/dL (74-106)
[2024-02-09 06:52] LABS: Anion Gap 5 (5-15); BUN 31 mg/dL (7-18); BUN/Creat Ratio 22.3 RATIO (10-20); Calcium,Total 8.8 mg/dL (8.5-10.1); Chloride 103 mmol/L (98-107); Creatinine, Serum 1.39 mg/dL (0.55-1.02); EST Glomerular Filtration Rate 39 mL/min (>60); Est Glom Filt Rate - Afr Amer 47 mL/min (>60); Estimated Creatinine Clearance 27.55 ml/min; Glucose 73 mg/dL (74-106); Potassium 4.1 mmol/L (3.5-5.1); Sodium Level 137 mmol/L (136-145)
[2024-02-09 07:04] LABS: Differential Comment SCANNED
[2024-02-09 09:49] VITALS: BP 133/49; PULSE 58; RESP 16; TEMP 36.7; O2SAT 94
[2024-02-09] MEDS: Glimepiride 2 MG Tablet PO (09:59)
[2024-02-09] MEDS: Potassium Chloride Oral Tablet 20 MEQ PO (09:59)
[2024-02-09] MEDS: Omega-3 Acid Ethyl Esters 1 GM Capsule PO (09:59)
[2024-02-09] MEDS: morphine SR 15 MG Tablet PO (09:59)
[2024-02-09] MEDS: Lisinopril 20 MG Tablet 30 MG PO (10:18)
[2024-02-09 11:28] VITALS: O2SAT 90; O2SAT 94
--- NOTE | 2024-02-09 11:58 | DCINST_ITS ---
Discharge Instructions Diet Discharge Diet: 1800 Calorie Control Diet Activity Discharge Activity: Return to Normal Activity Weight Bearing Status: Full weight bearing Follow Up Care Test Results: Test results from this visit will be discussed in further detail at your follow- up appointment, if applicable. Discharge Plan Admission Admit Date/Time: 02/06/24 17:57 Primary Reason for Your Visit: congestive heart failure, pulmonary hypertension Attending Provider: Gabriel Pelaez Primary Care Provider: DENILSON HERNANDEZ Consulting Providers: Shabnam Davila; Denilson Pollard Instructions Additional Instructions / Restrictions: See your family practitioner in 7 to 10 days Discharge Orders/Prescriptions Prescriptions: New acetaminophen 325 mg Tablet 650 mg PO Q6H PRN PRN (Reason: Pain 1-10 Or Fever >100.7) Qty: 0 0RF potassium chloride 20 mEq Tablet,Er Particles/Crystals 20 meq PO DAILY Qty: 30 0RF furosemide [Lasix] 40 mg tablet 40 mg PO DAILY Qty: 60 0RF metoprolol succinate 25 mg tablet extended release 24 hr 25 mg PO DAILY Qty: 30 0RF Rx Instructions: start 02/09/24 Continued morphine 15 mg tablet extended release 15 mg PO Q12H glimepiride 2 mg tablet 2 mg PO DAILY lisinopril 30 mg tablet 30 mg PO DAILY (DME) True Metrix Glucose Test Strip Strip See Rx Instructions .ROUTE .MEDSUPPLY Qty: 10 Patient Comments: USE DIRECTED ONCE DAILY Rx Instructions: As directed (DME) lancets [TRUEplus Lancets] 33 gauge misc See Rx Instructions .ROUTE .MEDSUPPLY Qty: 100 Patient Comments: USE DIRECTED ONCE DAILY Rx Instructions: As directed polyethylene glycol 3350 [Miralax] 17 gram/dose powder 4 g PO DAILY PRN (Reason: constipation) Citrucel Sugar Free Powder 2 g PO DAILY PRN (Reason: constipation) escitalopram oxalate 10 mg tablet 10 mg PO QPM omega-3 acid ethyl esters 1 gram capsule 2 cap PO DAILY eszopiclone 2 mg tablet 2 mg PO QHS PRN (Reason: sleep) docusate sodium 100 mg capsule 100 mg PO DAILY PRN (Reason: constipation) Discontinued furosemide 20 mg tablet 20 mg PO DAILY PRN (Reason: edema) metoprolol tartrate 25 mg tablet 25 mg PO BID Referrals / Follow Up: DENILSON HERNANDEZ [Other] DENILSON HERNANDEZ [Other] Jason Harris MD [Med Staff - Active Staff] - See Referral Note (Call the office to make an appointment, tell the office you were in the hospital and you are instructed to follow-up within 3 weeks) Disposition Disposition (needs filled in before D/C Order can be placed): Home, Self Care
--- NOTE | 2024-02-09 12:07 | DS.PCM_ITS ---
Providers Date of Admission: 02/06/24 Date of Discharge: 02/09/24 Primary Care Physician: DENILSON HERNANDEZ Reason For Visit: ACUTE HEART FAILURE Diagnosis Discharge Diagnosis (1) CHF (congestive heart failure): Status: Acute Code(s): I50.9 - Heart failure, unspecified Plan 1. 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 #5 coronary artery disease-past history of coronary artery bypass #6 type 2 diabetes #7 essential hypertension #8 chronic depression Medications at Discharge Home Medications blood sugar diagnostic (True Metrix Glucose Test Strip) #10 ea 07/29/23 glimepiride 2 mg tablet 2 mg PO DAILY diabetes 07/29/23 lancets 33 gauge (TRUEplus Lancets) #100 ea 07/29/23 lisinopril 30 mg tablet 30 mg PO DAILY blood pressure 07/29/23 morphine 15 mg tablet,extended release 15 mg PO Q12H pain 07/29/23 methylcellulose (laxative) (Citrucel Sugar Free oral powder) 2 g PO DAILY PRN constipation 01/13/24 polyethylene glycol 3350 17 gram/dose oral powder (Miralax) 4 g PO DAILY PRN constipation 01/13/24 escitalopram oxalate 10 mg tablet 10 mg PO QPM mental health 02/02/24 eszopiclone 2 mg tablet 2 mg PO QHS PRN sleep 02/02/24 omega-3 acid ethyl esters 1 gram capsule 2 cap PO DAILY 02/02/24 docusate sodium 100 mg capsule 100 mg PO DAILY PRN constipation 02/06/24 acetaminophen 325 mg tablet 650 mg (2 x 325 mg) PO Q6H PRN PRN Pain 1-10 Or Fever >100.7 #0 tabs 02/07/24 furosemide 40 mg tablet (Lasix) 40 mg PO DAILY #60 tabs 02/07/24 potassium chloride 20 mEq tablet,extended release(part/cryst) 20 meq PO DAILY #30 tabs 02/07/24 metoprolol succinate 25 mg tablet,extended release 24 hr 25 mg PO DAILY #30 tabs 02/09/24 Hospital Course Operations None Procedures 2-D Echocardiogram Summary of Care Provided Minutes Spent on Discharge: 31 Hospital Course: This 78-year-old white female was seen in the emergency room at [facility] with complaints of shortness of breath. She had been seen in the emergency room 4 days prior and had been diagnosed with congestive heart failure, she signed herself out AMA at that point and did not consent to hospitalization. Patient stated she typically takes Lasix 10 mg 3 times a week but she is taking Lasix 20 mg a day since she was seen in the emergency room approximately 4 days prior. Patient does not have home O2, she had been checking her ambulatory pulse ox at home and had readings of 84 to 95%. Labs obtained showed a hemoglobin of 10.5, white blood cell count was normal, creatinine was elevated at 1.26 and BUN was 25. Patient's beta natruretic peptide was elevated at 288, glucose was 165. Chest x-ray was obtained which showed cardiomegaly with minimal central pulmonary venous congestion and trace bilateral pleural effusions. Patient was admitted to PCU, placed on IV diuresis and an echocardiogram was obtained, it was noted to be a normal ejection fraction, there is noted to be evidence of moderate pulmonary hypertension and there was noted to be turbulence in the ascending aorta. There was a PFO noted. It was recommended that an outpatient cardiac MRI be obtained for further evaluation of the heart. Patient was was weaned off supplemental oxygen during her hospital stay, cardiology was contacted here for follow-up appointment and instructed the patient to call for follow-up appointment within the next month. On 02/09/2024, patient was seen and examined: On examination she appeared in good health and spirits, she does not appear to be in any distress. Vital signs as documented. Skin warm and dry and without overt rashes. Neck without JVD, thyroid appears normal, trachea is midline, neck is supple. Lungs clear, normal air movement was noted. Heart exam notable for regular rhythm, normal sounds and absence of murmurs, rubs or gallops. Abdomen unremarkable and without evidence of organomegaly, masses, or abdominal aortic enlargement, bowel sounds are present in all 4 quadrants, no abdominal tenderness was noted. Extremities nonedematous, no cyanosis was noted, no clubbing was noted. Neuro: Cranial nerves II through XII are grossly intact, no focal motor deficits were noted, sensation to light touch and pinprick is intact, motor exam 5/5 throughout. Psych: Patient is alert and oriented x3, she does not appear anxious or depressed, she does not appear agitated. Patient was discharged home in stable condition on 02/09/2024 Weight / BMI Weight Weight: 66.9 kg Body Mass Index (BMI) 28.8 ABG / Lab / Microbiology Data 02/09/24 04:43 02/09/24 04:43 Laboratory: Laboratory Results - last 24 hr 02/08/24 12:08: POC Glucose 242 H 02/08/24 17:13: POC Glucose 127 H 02/08/24 21:04: POC Glucose 190 H 02/09/24 04:43: WBC 10.0, RBC 3.67 L, Hgb 10.6 L, Hct 34.6 L, MCV 94.3, MCH 28.9, MCHC 30.6 L, RDW Std Deviation 44.5 H, RDW Coeff of Marleen 12.8, Plt Count 265, MPV 9.5, Immature Gran % (Auto) 0.500, Neut % (Auto) 65.7, Lymph % (Auto) 17.1 L, [place] % (Auto) 15.8 H, Eos % (Auto) 0.0, Baso % (Auto) 0.9, Absolute Neuts (auto) 6.6, Absolute Lymphs (auto) 1.71, Nucleated RBC % 0, Differential Comment SCANNED, Sodium 137, Potassium 4.1, Chloride 103, Carbon Dioxide 29.0, Anion Gap 5, BUN 31 H, Creatinine 1.39 H, Estim Creat Clear Calc 27.55, Est GFR (MDRD) Af Amer 47 L, Est GFR (MDRD) Non-Af 39 L, BUN/Creatinine Ratio 22.3 H, G lucose 73 L, Calcium 8.8 02/09/24 06:07: POC Glucose 72 L Radiography Diagnostic Testing: Radiology Impression Venous Doppler Study 02/07/24 13:53 Interpretation Summary Deep veins of the bilateral lower extremities are patent and compressible segmentally. There is no evidence of bilateral lower extremity deep vein thrombosis. The bilateral great saphenous veins appear patent and compressible segmentally. Ordering Physician: Denilson Pollard Performed By: Susanna Cohen RVT D/C Instructions Discharge Diet: 1800 Calorie Control Diet Weight Bearing Status: Full weight bearing Meaningful Use Info Meaningful Use Meaningful Use Diagnoses (Choose all that apply): CHF CHF ANURADHA/ARB ordered at discharge?: Yes Documented LVEF (%): 65 Ischemic Stroke Statin Dosing Therapy Reference: STATIN DOSE THERAPY REFERENCE: * Patients > 75 years receive moderate or high dose statin therapy. * Patients 75 years or YOUNGER should receive HIGH intensity statin dose unless contraindicated. You will be required to document reason for non-treatment if statin daily dose does not meet guidelines. HIGH DOSE STATIN THERAPY DAILY Atorvastatin > than or = to 40 mg Rosuvastatin > than or = to 20 mg Amlodipine + Atorvastatin > than or = to 2.5/40 mg Ezetimibe + Simvastatin 10/80 mg Simvastatin 80mg Discharge Plan Admission Admit Date/Time: 02/06/24 17:57 Primary Reason for Your Visit: congestive heart failure, pulmonary hypertension Attending Provider: Gabriel Pelaez Primary Care Provider: DENILSON HERNANDEZ Consulting Providers: Shabnam Davila; Denilson Pollard Instructions Additional Instructions / Restrictions: See your family practitioner in 7 to 10 days Discharge Orders/Prescriptions Prescriptions: New acetaminophen 325 mg Tablet 650 mg PO Q6H PRN PRN (Reason: Pain 1-10 Or Fever >100.7) Qty: 0 0RF potassium chloride 20 mEq Tablet,Er Particles/Crystals 20 meq PO DAILY Qty: 30 0RF furosemide [Lasix] 40 mg tablet 40 mg PO DAILY Qty: 60 0RF metoprolol succinate 25 mg tablet extended release 24 hr 25 mg PO DAILY Qty: 30 0RF Rx Instructions: start 02/09/24 Continued morphine 15 mg tablet extended release 15 mg PO Q12H glimepiride 2 mg tablet 2 mg PO DAILY lisinopril 30 mg tablet 30 mg PO DAILY (DME) True Metrix Glucose Test Strip Strip See Rx Instructions .ROUTE .MEDSUPPLY Qty: 10 Patient Comments: USE DIRECTED ONCE DAILY Rx Instructions: As directed (DME) lancets [TRUEplus Lancets] 33 gauge misc See Rx Instructions .ROUTE .MEDSUPPLY Qty: 100 Patient Comments: USE DIRECTED ONCE DAILY Rx Instructions: As directed polyethylene glycol 3350 [Miralax] 17 gram/dose powder 4 g PO DAILY PRN (Reason: constipation) Citrucel Sugar Free Powder 2 g PO DAILY PRN (Reason: constipation) escitalopram oxalate 10 mg tablet 10 mg PO QPM omega-3 acid ethyl esters 1 gram capsule 2 cap PO DAILY eszopiclone 2 mg tablet 2 mg PO QHS PRN (Reason: sleep) docusate sodium 100 mg capsule 100 mg PO DAILY PRN (Reason: constipation) Discontinued furosemide 20 mg tablet 20 mg PO DAILY PRN (Reason: edema) metoprolol tartrate 25 mg tablet 25 mg PO BID Referrals / Follow Up: DENILSON HERNANDEZ [Other] DENILSON HERNANDEZ [Other] Jason Harris MD [Med Staff - Active Staff] - See Referral Note (Call the office to make an appointment, tell the office you were in the hospital and you are instructed to follow-up within 3 weeks) Disposition Disposition (needs filled in before D/C Order can be placed): Home, Self Care Charges/Coding Visit Charges Inpatient E&M: 04740 Disch Hosp >30min
--- NOTE | 2024-02-09 12:15 | CASEMGMT ---
Patient has order for discharge. Patient does not qualify for home oxygen. RN CM in to discuss needs at discharge. Patient denies needs or help at discharge. Patient had no further questions or concerns.
[2024-02-09 12:19] LABS: Bedside Glucose 139 mg/dL (74-106)
[2024-02-09 12:51] VITALS: BP 143/49; PULSE 57; RESP 16; TEMP 36.7; O2SAT 96
--- NOTE | 2024-02-09 12:55 | NURSING ---
Education provided to pt about following prescriptions as prescribed as pt was choosing how to take meds on own, metoprolol 25mg prescribed BID, was taking daily. Furosemide was prescribed 20 mg daily PRN pt was taking 10 mg 3x a week.
== END 2024-02-09 13:32 | disposition home or self-care (01) | DRG 291 ==
LOC: ED 15:42 → PCU 18:06
PROVIDERS: Internal Medicine; Admitting Provider Student in an Organized Health Care Education/Training Program; Emergency Provider Emergency Medicine; Visit Provider Internal Medicine
DX: I11.0 Hypertensive heart disease with heart failure (principal); I50.31 Acute diastolic (congestive) heart failure; I16.1 Hypertensive emergency; I27.20 Pulmonary hypertension, unspecified; Z95.1 Presence of aortocoronary bypass graft; E11.9 Type 2 diabetes mellitus without complications; F32.A Depression, unspecified; I70.0 Atherosclerosis of aorta; I08.1 Rheumatic disorders of both mitral and tricuspid valves; I25.10 Atherosclerotic heart disease of native coronary artery without angina pectoris; E87.6 Hypokalemia; I77.810 Thoracic aortic ectasia; Z66 Do not resuscitate; Z79.84 Long term (current) use of oral hypoglycemic drugs; Z95.2 Presence of prosthetic heart valve
CPT/HCPCS: 36415; 71046; 71275; 80048; 82962; 83735; 83880; 84100; 84484; 85025; 85379; 93005; 93306; 93970; 97162; 97166; 97530; 97535; 99252; 99285; Q9967; A4216; G0463; J1940

== ENCOUNTER → 2024-03-23 | Outpatient (CLI) | payer MEDICARE, SELFPAY ==
[2024-03-23 16:41] LABS: Anion Gap 7 (5-15); BNP,B-Type NATRIURETIC PEPTIDE 163.7 pg/mL (0-100); BUN 27 mg/dL (7-18); Calcium,Total 9.3 mg/dL (8.5-10.1); Chloride 102 mmol/L (98-107); Creatinine, Serum 1.23 mg/dL (0.55-1.02); EST Glomerular Filtration Rate 45 mL/min (>60); Est Glom Filt Rate - Afr Amer 54 mL/min (>60); Glucose 205 mg/dL (74-106); Sodium Level 136 mmol/L (136-145)
== END | disposition home or self-care (01) ==
LOC: LAB 15:12
PROVIDERS: Referring Provider Internal Medicine Cardiovascular Disease; Visit Provider Internal Medicine Cardiovascular Disease
DX: I50.32 Chronic diastolic (congestive) heart failure (principal)
CPT/HCPCS: 36415; 80048; 83880

== ENCOUNTER → 2025-07-12 | Outpatient (CLI) | payer MEDICARE, SELFPAY ==
--- NOTE | 2025-07-12 14:39 | ECHOD_ITS ---
Reason For Study Reason For Study: Prosthetic Heart Valve Procedure This was a 2D Doppler, Color Flow transthoracic echocardiogram. Exam performed in department. Left Ventricle Normal LV size. Mild concentric left ventricular hypertrophy. The left ventricular ejection fraction is 65 %. Stage I diastolic dysfunction with elevated left atrial filling pressures. Right Ventricle Normal right ventricle. Atria The left atrium is mildly enlarged. Normal right atrium. Patent foramen ovale. Mitral Valve Moderate (2+) mitral valve insufficiency. Tricuspid Valve Moderate (2+) tricuspid valve insufficiency. Right ventricular systolic pressure estimated to be 56 mmHg. Aortic Valve Bioprosthetic aortic valve mean peak gradient 14 mmHg. Not significantly different from previous study in 2023. Pulmonic Valve Mild (1+) pulmonic valve insufficiency. Great Vessels Mildly dilated aortic root. Pericardium/Pleural No pericardial effusion. MMode/2D Measurements & Calculations LVIDd: 4.7 cm IVSd: 1.2 cm LVOT diam: 2.0 cm LVIDs: 2.8 cm LVPWd: 1.2 cm LVOT area: 3.2 cm2 RVDd: 4.1 cm FS: 41.3 % Ao root diam: 4.3 cm LAV(MOD-bp): 49.2 ml LVAd ap4: 20.0 cm2 LAV(MOD-bp) Indexed: 30.2 ml/m2 LVLd ap4: 6.6 cm LAV(MOD-sp2): 45.7 ml EDV(MOD-sp4): 50.1 ml LAV(MOD-sp4): 47.5 ml EDV(sp4-el): 51.0 ml LVAs ap4: 10.2 cm2 LVLs ap4: 5.3 cm ESV(MOD-sp4): 16.5 ml ESV(sp4-el): 16.6 ml EF(MOD-sp4): 67.1 % EF(sp4-el): 67.4 % SV(MOD-sp4): 33.6 ml SV(sp4-el): 34.4 ml LA A4 area: 18.9 cm2 SI(MOD-sp4): 20.6 ml/m2 LA dimension(2D): 4.2 cm RA A4 area: 16.2 cm2 Time Measurements MV dec time: 0.24 sec Doppler Measurements & Calculations MV E max tung: 174.7 cm/sec Lat Peak E' Tung: 7.7 cm/sec Med Peak E' Tung: 4.4 cm/sec MV A max tung: 90.4 cm/sec E/E' lat: 22.8 E/E' med: 40.1 MV E/A: 1.9 MV V2 max: 201.2 cm/sec Ao V2 max: 239.5 cm/sec MV max P.2 mmHg MV dec slope: 736.0 cm/sec2 Ao max P.0 mmHg MV V2 mean: 84.9 cm/sec Ao V2 mean: 177.9 cm/sec MV mean P.8 mmHg Ao mean P.1 mmHg MV V2 VTI: 60.6 cm Ao V2 VTI: 60.1 cm AV (velocity ratio): 0.77 MVA(VTI): 2.4 cm2 GLYNN(I,D): 2.5 cm2 GLYNN(V,D): 2.3 cm2 LV V1 max: 173.0 cm/sec SV(LVOT): 148.1 ml PA V2 max: 140.8 cm/sec LV V1 max P.0 mmHg PA V2 mean: 101.2 cm/sec LV V1 mean P.7 mmHg LV V1 mean: 143.6 cm/sec LV V1 VTI: 46.2 cm PI end-d tung: 111.3 cm/sec TR max tung: 356.6 cm/sec TR max P.9 mmHg ECHO/Echo Complete Interpretation Summary Mild concentric left ventricular hypertrophy. The left ventricular ejection fraction is 65 %. Stage I diastolic dysfunction with elevated left atrial filling pressures The left atrium is mildly enlarged. Moderate (2+) mitral valve insufficiency. Moderate (2+) tricuspid valve insufficiency. Right ventricular systolic pressure estimated to be 56 mmHg. Bioprosthetic aortic valve mean peak gradient 14 mmHg. Not significantly differ ent from previous study in 2023. Mild (1+) pulmonic valve insufficiency. Mildly dilated aortic root. Patent foramen ovale. Ordering Physician: Milady Mitchell Referring Physician: Leo Rojo Performed By: Cara Vela, CRISELDA, RVT
== END | disposition home or self-care (01) ==
LOC: CVS 14:38
PROVIDERS: PCP Family Medicine; Referring Provider Physician Assistant Medical; Visit Provider Physician Assistant Medical
DX: Z95.2 Presence of prosthetic heart valve (principal); I77.810 Thoracic aortic ectasia
CPT/HCPCS: 93306